=== PATIENT | female | born 1955 | race Caucasian/White ===

== ENCOUNTER 2020-02-13 18:55 | Inpatient (IN) | payer OTHER ==
--- OUTSIDE RECORDS SUMMARY | 2020-02-13 18:58 | XMS REPORT | Clinical Summary ---
:1955 Author Organization [facility] Address [address] [place] [address] Care Team Providers Name Role Phone Leonel Hernandes MD Primary Care Provider [phone] Allergies Active Allergy Reactions Severity Noted Date Comments Nsaids (Non-Steroidal 04/29/2018 Avoids because of remaining Anti-Inflammatory Drug) one kidney issues Sulfa (Sulfonamide Rash Low 05/24/2016 Antibiotics) Medications Medication Sig Dispensed Refills Start End Status Date Date amLODIPine (NORVASC) 5 Take 5 mg by 0 Active MG tablet mouth daily. Total dose is 7.5 mg daily omega-3 acid ethyl Take 2 g by 0 Active esters (LOVAZA) 1 gram mouth 2 (two) capsule times a day. cyanocobalamin 1000 MCG Take 1,000 mcg 0 Active tablet by mouth daily. omeprazole (PriLOSEC) Take 20 mg by 0 Active 20 MG capsule mouth daily. aspirin (ECOTRIN) 81 MG Take 81 mg by 0 Active enteric coated tablet mouth daily. amLODIPine (NORVASC) Take 2.5 mg by 1 08/10/19 Active 2.5 mg tablet mouth daily. 18 Total dose is 7.5 mg daily diclofenac (VOLTAREN) 1 APPLY TO 100 g 0 12/14/19 Active % gel AFFECTED AREA 4 18 TIMES A DAY gabapentin (NEURONTIN) Take 300 mg by 0 Active 300 mg capsule mouth nightly. hydroCHLOROthiazide Take 12.5 mg by 0 Active (HYDRODIURIL) 12.5 MG mouth daily. tablet cholecalciferol, Take 2,000 0 Ac tive vitamin D3, 50 mcg Units by mouth (2,000 unit) capsule daily. capsule atorvastatin (LIPITOR) Take 80 mg by 0 Active 80 MG tablet mouth daily. therapeutic Take 2 tablets 0 Act sole multivitamin by mouth daily. (THERAGRAN) tablet amoxicillin-pot 0 12/31/19 Acti ve clavulanate (AUGMENTIN) 20 500-125 mg per tablet multivit with 0 04/21/20 Active calcium,iron,min 10 (MULTIPLE VITAMIN, WOMENS ORAL) ezetimibe (Zetia) 10 mg Take 1 tablet 90 tablet 3 01/12/20 Active tabletIndications: (10 mg total) 20 021 hypertriglyceridemia by mouth daily .hypertriglycer idemia. atorvastatin (LIPITOR) Take 40 mg by 0 13/09 Discontinued 40 MG tablet mouth daily. 020 (Dos e adjustment ) therapeutic Take 1 tablet 0 Disc ontinued multivitamin by mouth daily. 020 ( Dose (THERAGRAN) tablet a djustment) cholecalciferol, Take 1,000 0 Di scontinued vitamin D3, (VITAMIN Units by mouth 020 (Dose D3) 1,000 unit tablet daily. adjustment) lisinopril-hydrochlorot Take 1 tablet 0 09/21/19 Discontinued hiazide by mouth daily. 18 020 (Alt ernate (PRINZIDE,ZESTORETIC) therapy) 10-12.5 mg per tablet gabapentin (NEURONTIN) Take 100 mg by 1 08/08/19 Discontinued 100 mg capsule mouth nightly. 18 020 (Dose adjustment ) tobramycin (TOBREX) 0.3 1 drop 4 (four) 0 04/03/20 Discontinued % drops times a day. 18 020 (Therap y Left eye completed) ondansetron (ZOFRAN) 4 Take 1 tablet 20 tablet 0 04/24/2013/09 Discontinued MG tabletIndications: (4 mg total) by 18 02 0 (Therapy Jing's deformity, mouth every 8 completed) right (eight) hours as needed for nausea or vomiting. sodium,potassium,mag Dispense 1 kit. 354 mL 0 08/04/1912/09 Discontinued sulfates (SUPREP BOWEL Take as 20 020 (Med List PREP KIT) 17.5-3.13-1.6 directed. Cleanup) gram recon soln Please follow the prep instructions provided by the office only. acetaminophen-codeine Take 2 tablets 15 tablet 0 01/29/2010/09 (TYLENOL WITH CODEINE by mouth every 20 020 #3) 300-30 mg per 4 (four) hours tabletIndications: as needed for acute pain moderate pain for up to 10 days .acute pain. methylPREDNISolone follow package 21 tablet 0 01/29/20 (MEDROL DOSEPAK) 4 mg directions 20 020 tablet Hospital, Clinic, or Other Ordered Dose Route Frequency Start Date End Date Status Facility Administered Medication triamcinolone acetonide 40 mg IM once 10/09/2018 Active (KENALOG-40) injection 40 mgIndications: Jing's deformity, right Ropivacaine hydrochloride 12 mg epid continuous 10/09/2018 Active Injection 0.2 % 20 mg/10 mLIndications: Jing's deformity, right triamcinolone acetonide 40 mg IM once 03/12/2019 Active (KENALOG-40) injection 40 mgIndications: Neuropathy of right saphenous nerve Ropivacaine hydrochloride 12 mg epid continuous 03/12/2019 Active Injection 0.2 % 20 mg/10 mLIndications: Neuropathy of right saphenous nerve triamcinolone acetonide 40 mg IM once 08/18/2019 Active (KENALOG-40) injection 40 mgIndications: Neuritis of right sural nerve Ropivacaine hydrochloride 12 mg inj once 08/18/2019 Active Injection 0.2 % 20 mg/10 mLIndications: Neuritis of right sural nerve triamcinolone acetonide 40 mg IM once 08/18/2019 Active (KENALOG-40) injection 40 mgIndications: Right tibial neuropathy Ropivacaine hydrochloride 12 mg inj once 08/18/2019 Active Injection 0.2 % 20 mg/10 mLIndications: Right tibial neuropathy Active Problems Problem Noted Date History of vertigo 01/12/2020 Bruises easily 01/12/2020 Personal history of gout 01/12/2020 Class 1 obesity due to excess calories with serious co morbidity and body 01/12/2020 mass index (BMI) of 32.0 to 32.9 in adult Recurrent UTI 01/12/2020 High triglycerides 01/12/2020 Chronic kidney disease (CKD), stage III (moderate) At risk for osteoporosis 01/12/2020 Elevated lipids 01/12/2020 Essential hypertension 01/12/2020 Personal history of gastric bypass 01/12/2020 Neuritis of right sural nerve 08/18/2019 Right tibial neuropathy 08/18/2019 Jing's deformity, 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 Encounters Date Type Specialty Care Team Description 01/29/2020 Office Visit Orthopedic Surgery John Kendrick Posterio r calcaneal exostosis, left (Primary Dx); MD Neil Achilles tendin itis of left lower extremity 01/29/2020 Orders Only Orthopedic Surgery Yesica Hernández MA 01/29/2020 Travel 01/28/2020 Travel 01/12/2020 Telemedicine Internal Medicine [place], Encounter for medical examination to establish care (Primary Dx); Tommy Castaneda, Neuropathy; Personal histor y of gastric bypass; Essential hyper tension; Elevated lipids ; Encounter for h epatitis C screening test for low risk patient; At risk for ost eoporosis; Chronic kidney disease (CKD), stage III (moderate) (HCC); High triglyceri denisse; Recurrent UTI; Class 1 obesity due to excess calories with serious comorbidity and body mass index (BMI) of 32.0 to 32.9 in adult; Personal histor y of gout; Bruises easily; History of vert igo 01/04/2020 Travel 08/18/2019 Clinical Support Orthopedic Surgery Seng Montano H aglund's deformity, right (Primary Dx); MD Serafin Neuritis of rig ht sural nerve; Right tibial ne uropathy 08/12/2019 Telephone Gastroenterology Saskia Stewart LVN 08/06/2019 Lab Lab Erlinda Alba MD 08/06/2019 Documentation Gastroenterology Erlinda Alba Colono scopy MD 08/04/2019 Orders Only Gastroenterology Mamie Baeza MA 08/04/2019 Telephone GastroenterErlinda Mar MD 07/24/2019 Telephone Gastroenterology Erlinda Alba MD 07/08/2019 Telephone GastroenterErlinda Mar MD 03/12/2019 Office Visit Orthopedic Surgery Seng Montano Neuro hipolito of right saphenous nerve (Primary Dx); MD Serafin Jing's defor mity, right after 02/12/2019 Family History Medical History Relation Name Comments Early Brother Malik. C. At 50 Heart disease Brother J. C. Heart attack at 28 Early Father Efraín At 60 -stroke at 53 Hearing loss Father Efraín Noise induced Hypertension Father Efraín Stroke Father Efraín At 53 disabling Diabetes Maternal Grandmother Chata Ellis Alcohol abuse Mother Reddy In 50,s. Stress Cancer Mother Reddy Non small cell l max cancer Early Mother Reddy At 60 Alcohol abuse Paternal Grandfather Braeden Habitual Relation Name Status Comments Brother Yelena Ll[place]. Father Efraín Maternal Grandmother Chata Ellis Mother Reddy Paternal Grandfather Braeden Social History Tobacco Use Types Packs/Day Years Used Date Never Smoker 0 0 Smokeless Tobacco: Never Used Alcohol Use Drinks/Week oz/Week Comments Yes 7 Glasses of wine 7.0 0 Cans of beer 0 Shots of liquor 0 Standard drinks or equivalent Sex Assigned at Date Recorded Female 01/05/2020 3:53 PM CDT Job Start Date Occupation Industry Not on file Not on file Not on file Travel History Travel Start Travel End No recent travel history available. COVID-19 Exposure Response Date Recorded In the last month, have you been in contact with No / Unsure 01/29/2020 8:49 AM CDT someone who was confirmed or suspected to have Coronavirus / COVID-19? Last Filed Vital Signs Vital Sign Reading Time Taken Comments Blood Pressure 135/88 01/12/2020 1:02 PM CDT Pulse 65 01/12/2020 1:02 PM CDT Temperature - - Respiratory Rate - - Oxygen Saturation - - Inhaled Oxygen Concentration - - Weight 74.8 kg (165 lb) 01/12/2020 1:02 PM CDT Height 152.4 cm (5') 01/12/2020 1:02 PM CDT Body Mass Index 32.22 01/12/2020 1:02 PM CDT Plan of Treatment Health Maintenance Due Date Last Done Comments CERVICAL CANCER SCREENING 1977 BREAST CANCER SCREENING 2006 COLONOSCOPY SCREENING 2006 SHINGLES VACCINES (#1) 2006 INFLUENZA VACCINE 02/20/2020 Procedures Procedure Name Priority Date/Time Associated Diagnosis Comme nts XR ANKLE 3+ VW LEFT Routine 01/29/2020 9:03 AM Chronic pain o f left Results for this CDT ankle procedure are i n the results section. URINALYSIS, Routine 01/28/2020 11:29 AM Recurrent UTI Results for this COMPLETE, WITH CDT procedure are in REFLEX TO CULTURE the result s section. SURGICAL PATHOLOGY Routine 08/06/2019 2:01 PM Re sults for this REQUEST PLASTIC SURGERY MANAGER procedure are i n the results section. after 02/12/2019 Results XR Ankle 3+ Vw Left (01/29/2020 9:03 AM CDT) Specimen Narrative Performed At This result has an attachment that is no t available. 3 views of her left ankle done weightbearing today shows overall HM [facility] well-preserved ankle joint space that is congruent. No acute fractures identified. There is a large os trigonum that is pre sent. Also notable is calcification along the Achilles at the insertion s ite with an exostosis and some calcification along the non-inserti onal region. Plantar exostosis also noted. Performing Organization Address City/State/Zipcode Phone Number [facility] [address] [place] [address] URINALYSIS, COMPLETE, WITH REFLEX TO CULTURE (01/28/2020 11:29 AM CDT) Color, UA YELLOW YELLOW [facility] [place] Appearance CLEAR CLEAR [facility] [place] Specific gravity, 1.020 1.001 - 1.035 [facility] [place] pH, urine < OR = 5.0 5.0 - 8.0 [facility] [place] Glucose, urine NEGATIVE NEGATIVE [facility] [place] Bilirubin, UA NEGATIVE NEGATIVE [facility] [place] Ketones, UA NEGATIVE NEGATIVE [facility] [place] Occult blood, NEGATIVE NEGATIVE [facility] urine [place] Protein, UA 2+ (A) NEGATIVE [facility] [place] Nitrite, UA NEGATIVE NEGATIVE [facility] [place] Leukocyte NEGATIVE NEGATIVE [facility] esterase, UA [place] WBC, UA NONE SEEN < OR = 5 /HPF [facility] [place] RBC, UA NONE SEEN < OR = 2 /HPF [facility] [place] Squamous NONE SEEN < OR = 5 /HPF [facility] epithelial cells, [place] UA Bacteria, UA NONE SEEN NONE SEEN /HPF [facility] [place] Hyaline casts, UA NONE SEEN NONE SEEN /LPF [facility] [place] Reflex NO CULTURE [facility] INDICATED [place] Specimen Narrative Performed At PATIENT REFUSED SOME TESTING; PATIENT ENCOURAGED TO RE TURN. [facility] Resulting Agency Comment Performing Organization Information: Site ID: [id number] Name: [facility] Address: [address] [place] [id number] Director: Emir Rice Performing Organization Address City/[facility]/Zipcode Phone Number [facility] [address] [address] Surgical pathology request (08/06/2019 2:01 PM PLASTIC SURGERY MANAGER) [facility] DEPARTMENT OF PATHOLOGY AND GENOMIC MEDICINE Surgical pathology See link below [facility] DEPARTMENT OF report for PDF Lab PATHOLOGY AND Report GENOMIC MEDICINE Result status This is Final [facility] DEPARTMENT OF Report for PATHOLOGY AND [id number] GENOMIC MEDICINE Specimen Performing Organization Address City/State/Zipcode Phone Number [facility] DEPARTMENT OF PATHOLOGY AND [address], [place] [address] GENOMIC MEDICINE after 02/12/2019 Advance Directives For more information, please contact: [phone] Type Date Recorded Patient Philatelic Consultant Explanati on Advance Directives, Living Will and Medical Power of Group Exercise Manager
--- OUTSIDE RECORDS SUMMARY | 2020-02-13 18:58 | XMS REPORT | Continuity of Care Document ---
:1955 Author Organization [facility] Care Team Providers Name Role Phone [facility] Unavailable Un available Problems Problem Status Onset Classification Date Comments Sourc e Date Reported R11.2 - Active OPID "NAUSEA WITH 7 Mac VOMITING, UNSPECIF" Medications No Data Provided for This Section Allergies, Adverse Reactions, Alerts No Known Medication Allergies Immunizations No Data Provided for This Section Results No Data Provided for This Section Pathology Reports No Data Provided for This Section Diagnostic Reports Report Value Date Source Gallbladder scan HIDA w EXAM: [place] Hepatobiliary Imaging with Pharm Intervention 04/09/2017 [facility] [place] [facility] [place] DATE: 04/09/2017 8:19 AM CDT INDICATION: NAUSEA, VOMITING COMPARISON: None. TECHNIQUE: After the intravenous admini stration of 6.51 mCi of technetium 99m Choletec, dynamic blood flow images followed by sequential static images through 60 minutes were obtained. Subsequently 1.5 mcg of CCK was administered intravenous ly over 3 minutes and additional images were obtained for another 30 minutes. Additionally, 8 oz of milk was administered followed by 15 minutes delayed images were obtained for another 30 minutes. FINDINGS: There is good tracer uptake in the liver with homogeneous distribution. The liver appears normal in size and shape. There is timely excretion of tracer into the extrahepatic biliary tree, bowel, and cirilo ibrahima visualization of the gal lbladder. There is good response of the gallbladder to CCK stimulation with a calculated gallbladder ejection fraction of 36% (normal is greater than 35%). Additionally, ther e is good response of the ga llbladder to milk stimulation with a calculated gallbladder ejection fraction of 48%. IMPRESSION: Normal hepatobiliary scan with normal gallbladde r contractility. Abdomen/Pelvis w/wo IV Enteric contrast was utilized. 04/08/[address] [facility] [address] EXAM: CT ABDOMEN AND PELVIS WITHOUT AND WITH C ONTRAST DATE: 04/08/2017 5:55 PM CDT INDICATION: - R11.2 Nausea with vomiting, uns pecified ADDITIONAL INFORMATION: None. COMPARISON: Upper gastrointestinal 12/16/2008 TECHNIQUE: Volumetric CT acq uisition of the abdomen and pelvis before and after the intravenous administration contrast. Axial, coronal and sagittal reconstructions. IV CONTRAST: 100 mL of Omnipaque 350 ORAL CONTRAST: None RADI[facility] DOSE: Total DLP: 1539 mGy*cm Estimated effective dose: DL P x 0.015 mSv COMPLICATIONS: None FINDINGS: Lines and tubes: None. Lower thorax: Mild right med ial lower lung zone atelectasis. No pleural effusions. Liver: Hepatic steatosis without focal lesions. Biliary tree: No intra- or extrahepatic biliary ductal dilation. Gallbladder: No radiopaque g allstones. No wall thickening or pericholecystic fluid. Pancreas: Atrophic pancreas with fatty infiltration at the pancreatic head. No ductal dilatation or obvious focal lesions. Spleen: No splenomegaly or focal lesions. Adrenals: Normal. Kidneys and ureters: Left ki dney is absent. Small bowel loops extend to the left renal fossa. No fluid collections or definite masses within the left renal fossa. Solitary right kidney enhanc es normally without perinephric stranding. No definite right renal stone or hydronephrosis. No right hydroureter. A 0.8 cm rim calcified right renal artery aneury sm. Bladder: No radiopaque bladder stones. Reproductive organs: Anteflexed uterus. No large adnexal lesions. Gastrointestinal tract: Post surgical changes related to Nohemy-en-Y gastric bypass. No significant dilatation of the gastric pouch and gastroduodenal anastomosis. Nondilated small bowel loops appears lateral to the descending colon secondary to gastric bypass surgery, some of which are collapsed. No dilatation of the excluded stomach and biliop ancreatic limb. The cecum. Some more central position. Partially visualized appendix appears within normal limits without fluid collections or stranding. Moderate colonic stool burden. Interposition of the traverse col on likely from surgery. No colonic obstruction. Moderate stool burden. Peritoneum and retroperitoneum: No ascites or fr ee air. Lymph nodes: No lymphadenopathy. Vasculature: Visualized abdo rosemary aorta and IVC within normal limits in caliber. Contrast bolus mixing within the IVC. A venous branch extends across the aorta to the left and extends inferiorly, most likely a left gonadal vein. Solitary right renal artery and vein are opacified. Right renal artery calcified aneurysm. Moderate arthrosclerotic monique cifications of the abdominal aorta and branches, including the tortuous splenic artery. The portal system is patent. The celiac trunk, SMA, and LEESA are patent. Bones: No acute osseous lesions. Soft tissues: Thinning of th e rectus abdominis muscle with sedation associated atrophy of the paraspinal and abdominal muscles. This IMPRESSION: 1. Postsurgical changes rel ated to Nohemy-en-Y gastric bypass with no evidence of obstruction. 2. Moderate colonic stool burden. 3. Left kidney absent, whic h could be congenital or prior nephrectomy. Please correlate with surgical history. 4. Solitary right kidney without renal stones o r hydronephrosis. 5. Calcified right renal artery aneurysm. Consultation Notes No Data Provided for This Section Discharge Summaries No Data Provided for This Section History and Physicals No Data Provided for This Section Vital Signs No Data Provided for This Section Encounters No Data Provided for This Section Procedures No Data Provided for This Section Assessment and Plan No Data Provided for This Section Plan of Care No Data Provided for This Section Social History No Data Provided for This Section Family History No Data Provided for This Section Advance Directives No Data Provided for This Section Functional Status No Data Provided for This Section
--- OUTSIDE RECORDS SUMMARY | 2020-02-13 18:58 | XMS REPORT | Clinical Summary ---
:1955 Author Organization [facility] Address [address] [place] [address] Care Team Providers Name Role Phone Michael Vaughn Primary Care Provider Unavailable Allergies Active Allergy Reactions Severity Noted Date Comments Nsaids (Non-Steroidal 07/03/2018 Kidney disease Anti-Inflammatory Drug) Penicillins Anaphylaxis High 07/03/2018 Sulfa (Sulfonamide Antibiotics) Rash Low 8 Medications Medication Sig Dispensed Refills Start Date End Date Status aspirin 81 MG EC tablet Take 81 mg by 0 Active mouth daily. atorvastatin (LIPITOR) Take 10 mg by 0 Active 10 MG tablet mouth daily. benazepril-hydrochlorth Take 1 tablet by 0 Active iazide (LOTENSIN HCT) mouth daily. 10-12.5 mg per tablet lisinopril Take 10 mg by 0 Activ e (PRINIVIL,ZESTRIL) 10 mouth daily. MG tablet pedi multivit Take by mouth. 0 A ctive no.33/fluoride (FHFW-TC-CXEM ORAL) tobramycin-dexamethason 1 drop every 4 0 Active e (TOBRADEX) 0.3-0.1 % (four) hours ophthalmic solution while awake. gabapentin (NEURONTIN) Take 300 mg by 0 Active 300 MG capsule mouth 3 (three) times daily. omega-3 fatty Take 2 g by mouth 0 Active acids-fish oil 2 (two) times 340-1,000 mg Cap per daily. capsule Active Problems Not on file Social History Tobacco Use Types Packs/Day Years Used Date Never Smoker Smokeless Tobacco: Never Used Alcohol Use Drinks/Week oz/Week Comments Yes 7 Glasses of wine 4.2 Sex Assigned at Date Recorded Not on file Job Start Date Occupation Industry Not on file Not on file Not on file Travel History Travel Start Travel End No recent travel history available. Last Filed Vital Signs Not on file Plan of Treatment Not on file Results Not on fileafter 02/12/2019 Insurance Payer Benefit Plan / Group Subscriber ID Type Phone A ddress [employer] - [employer] CARE [employer] HMO POS QPOS xxxxxxxxx HMO/POS (Home) [place] [address]
--- OUTSIDE RECORDS SUMMARY | 2020-02-13 18:59 | XMS REPORT | Continuity of Care Document ---
:1955 Author Organization [facility] t Address [address] [place] [address] Care Team Providers Name Role Phone Leonel Hernandes MD Primary Care Physician [phone] Pob1, Care Clinic Attending Clinician Unavailable Leonel Hernandes MD Attending Clinician Neil Kendrick MD Attending Clinician Edgar LANTIGUA Attending Clinician Unavailable Serafin Montano MD Attending Clinician Pat FLYNN Attending Clinician Unavailable Sarah Alba MD Attending Clinician Felisha LANTIGUA Attending Clinician Unavailable Payers Payer Name Policy Type Policy Number Effective Date Expiration Date S gael AETNAAETNA xxxxxxxxx 1990 [facility] HMO,POS,EPO, 00:00:00 Yarsanism MYNOR/[id number] O Problems Condition Condition Condition Status Onset Resolution Last Treating Co mments Source Name Details Category Date Date Treatment Clinician Date History of History of Disease Active [place] vertigo vertigo 01-11 [facility] 00:00: st 00 Bruises Bruises Disease Active [facility] easily easily 01-11 Methodi 00:00: st 00 Personal Personal Disease Active [place] history of history of 01-11 Me thodi gout gout 00:00: st 00 Class 1 Class 1 Disease Active [place] obesity obesity 01-11 [facility] due to due to 00:00: st excess excess 00 calories calories with with serious serious comorbidit comorbidit y and body y and body mass index mass index (BMI) of (BMI) of 32.0 to 32.0 to 32.9 in 32.9 in adult adult Recurrent Recurrent Disease Active Bernarda ston UTI UTI 01-11 Methodi 00:00: st 00 High High Disease Active [place] triglyceri triglyceri 01-11 Me thodi denisse denisse 00:00: st 00 Chronic Chronic Disease Active [place] kidney kidney 01-11 [facility] disease disease 00:00: st (CKD), (CKD), 00 stage III stage III (moderate) (moderate) At risk At risk Disease Active [place] for for 01-11 [facility] osteoporos osteoporos 00:00: st is is 00 Elevated Elevated Disease Active [place] lipids lipids 01-11 Methodi 00:00: st 00 Essential Essential Disease Active Bernarda stallingsrahul hypertensi hypertensi 01-11 Me thodi on on 00:00: st Personal Personal Disease Active [place] history of history of 01-11 Me thodi gastric gastric 00:00: st bypass bypass 00 Neuritis Neuritis Disease Active [place] of right of right 08-18 Method i sural sural 00:00: st nerve nerve 00 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 08-18 [facility] neuropathy neuropathy 00:00: st 00 Jing's Jing's Disease Active Bernarda stallingsrahul deformity, deformity, 2-08 Me th[facility] right right 00:00: st 00 R11.2 - Diagnosis Active 2017-04-26 Me moria "NAUSEA 04-04 13:45:00 l WITH R11.2 - 00:01: Mac VOMITING, "NAUSEA 00 UNSPECIF" WITH VOMITING, UNSPECIF" Active 04/04/2017 NICOLASA Watts Allergies, Adverse Reactions, Alerts Allergy Allergy Status Severity Reaction(s) Onset Inactive Treating Comm ents Source Name Type Date Date Clinician Nsaids Propensi Active 2017-[address] [facility] (Non-Rahul ty to 2-13 disease [facility] adverse 00:00: Medical Anti-Inf reaction 00 Center lammator s y Drug) Penicill Propensi Active Anaphylaxis 2017-[address] ins ty to 2-13 [facility] - adverse 00:00: Medical reaction 00 Center s Sulfa Propensi Active Rash 2017-07 [facility] (Sulfona ty to 2-13 [facility] - mide adverse 00:00: Medical Antibiot reaction 00 Center ics) s Nsaids Propensi Active 2017-07 Avoids [facility] (Non-Rahul ty to 0-09 because Methodi roidal adverse 00:00: of st Anti-Inf reaction 00 remaining lammator s to one y Drug) drug kidney issues Sulfa Propensi Active Rash 2015-07 [facility] (Sulfona ty to 1-03 Methodi mide adverse 00:00: st Antibiot reaction 00 ics) s to drug Family History Family Member Diagnosis Comments Start Date Stop Date Source Natural brother Early [place] Yarsanism Natural brother Heart disease [place] Yars[place] Natural father Early [facility] M ethodist Natural father Hearing loss [facility] Yarsanism Natural father Hypertension [facility] Yarsanism Natural father Stroke [facility] Me thodist Maternal grandmother Diabetes [place] Yarsanism Natural mother Alcohol abuse [facility] Yarsanism Natural mother Cancer [facility] th[facility]ist Natural mother Early [facility] M ethodist Paternal grandfather Alcohol abuse [place] Yarsanism Social History Social Habit Start Date Stop Date Quantity Comments Source Exposure to Not sure [facility] Metho dist SARS-CoV-2 (event) Sex Assigned At [facility] Alcohol intake 2020-01-12 2020-01-12 Current drinker [place] Yarsanism 00:00:00 00:00:00 of alcohol (finding) Smoking Status Start Date Stop Date Source Never smoker [facility] edical [place] Medications Ordered Filled Start Stop Current Ordering Indication Dosage Frequency Signature Comments Components Source Medication Medication Date Date Medication? Clinician (SIG) Name Name acetaminoph 2020- No acute pain 2{tbl} Q4H Take 2 [facility] en-codeine 01-28 07-20 tablets by Me richardson (TYLENOL 00:00: 23:[address] WITH 00 :00 every 4 CODEINE #3) (four) 300-30 mg hours as per tablet needed for moderate pain for up to 10 days .acute pain. methylPREDN 2019- No follow Bernarda jones ISolone 01-28 07-16 package Methodi (MEDROL 00:00: 23:[address] DOSEPAK) 4 00 :00 mg tablet amLODIPine 2020-0 Yes 5mg QD Take 5 mg [place] (NORVASC) 5 6-23 by mouth Meth elio MG tablet 13:03: daily. st 35 Total dose is 7.5 mg daily omega-3 2020-0 Yes 2g Q.5D Take 2 g [place] acid ethyl 6-23 by mouth 2 Met hodi esters 13:03: (two) st (LOVAZA) 1 35 times a gram day. capsule cyanocobala 2020-0 Yes 1000ug QD Take 1,000 [place] min 1000 6-23 mcg by Methodi MCG tablet 13:03: mouth st 35 daily. omeprazole 2020-0 Yes 20mg QD Take 20 mg [place] (PriLOSEC) 6-23 by mouth Metho di 20 MG 13:03: daily. st capsule 35 aspirin 2020-0 Yes 81mg QD Take 81 mg [place] (ECOTRIN) 6-23 by mouth Method i 81 MG 13:03: daily. st enteric 35 coated tablet gabapentin 2020-0 Yes 300mg QD Take 300 [place] (NEURONTIN) 6-23 mg by Methodi 300 mg 13:03: mouth st capsule 35 nightly. hydroCHLORO 2020-0 Yes 12.5mg QD Take 12.5 [place] thiazide 6-23 mg by Methodi (HYDRODIURI 13:03: mouth st L) 12.5 MG 35 daily. tablet cholecalcif 2020-0 Yes 2000U QD Take 2,000 [place] tracy, 6-23 Units by Methodi vitamin D3, 13:03: mouth st 50 mcg 35 daily. (2,000 unit) capsule capsule atorvastati 2020-0 Yes 80mg QD Take 80 mg [place] n (LIPITOR) 6-23 by mouth Meth elio 80 MG 13:03: daily. st tablet 35 therapeutic 2020-0 Yes 2{tbl} QD Take 2 [place] multivitami 6-23 tablets by La thodi n 13:03: mouth st (THERAGRAN) 35 daily. tablet therapeutic 2020-0 2020- No 1{tbl} QD Take 1 [place] multivitami 6-23 06-23 tablet by [place] thodi n 10:23: 00:[address] (THERAGRAN) 24 :00 daily. tablet atorvastati 2020-0 2020- No 40mg QD Take 40 mg [place] n (LIPITOR) 01-11 by mouth Met hodi 40 MG 10:23: 00:[address] tablet 02 :00 cholecalcif 2019- No 1000U QD Take 1,000 [place] tracy, 01-11 Units by Methodi vitamin D3, 10:22: 00:[address] (VITAMIN 45 :00 daily. D3) 1,000 unit tablet ezetimibe 2020- Yes 10mg QD Take 1 [place] (Zetia) 10 01-11 tablet (10 Me thodi mg tablet 00:00: 23:59 mg total) st 00 :00 by mouth daily .hypertrig lyceridemi a. amoxicillin 2019- Yes [place] -pot 12-30 [facility] clavulanate 00:00: st (AUGMENTIN) 00 500-125 mg per tablet triamcinolo 2019-0 Yes Neuritis of 40mg [place] ne 08-18 right sural Methodi acetonide 14:15: nerve st (KENALOG-40 00 ) injection 40 mg Ropivacaine 2019-0 Yes Neuritis of 12mg [place] hydrochlori 28 right sural M ethodi de 14:15: nerve st Injection 00 0.2 % 20 mg/10 mL triamcinolo 2019-0 Yes Right 40mg [place] ne 08-18 tibial Methodi acetonide 14:15: neuropathy st (KENALOG-40 00 ) injection 40 mg Ropivacaine 2019-0 Yes Right 12mg [place] hydrochlori 08-18 tibial Method i de 14:15: neuropathy st Injection 00 0.2 % 20 mg/10 mL sodium,pota 2019- No Dispense 1 [place] ssium,mag -14 08-12 kit. Take Meth elio sulfates 00:00: 00:[address] (SUPREP 00 :00 directed. BOWEL PREP Please KIT) follow the 17.5-3.13-1 prep .6 gram instructio recon soln ns provided by the office only. triamcinolo Yes Neuropathy 40mg [place] ne 8 of right Methodi acetonide 10:45: saphenous st (KENALOG-40 00 nerve ) injection 40 mg Ropivacaine Yes Neuropathy 12mg [place] hydrochlori 8-22 of right Meth elio de 10:45: saphenous st Injection 00 nerve 0.2 % 20 mg/10 mL triamcinolo Yes Jing's 40mg [place] ne 3-21 deformity, Methodi acetonide 09:45: right st (KENALOG-40 00 ) injection 40 mg Ropivacaine Yes Jing's 12mg [place] hydrochlori 3-21 deformity, Me thodi de 09:45: right st Injection 00 0.2 % 20 mg/10 mL omega-3 2017-07 Yes 2g Q.5D Take [address] [facility] fatty 2-14 by mouth 2 [facility] - acids-fish 10:51: (two) Medica l oil 46 times Center 340-1,000 daily. mg Cap per capsule gabapentin 2017-07 Yes 300mg [id number] Take [address] (NEURONTIN) 2-13 [id number] mg by L ukes - 300 MG 10:42: 3D mouth 3 Medical capsule 05 (three) Center times daily. lisinopril 2017-07 Yes 10mg QD Take [address] (PRINIVIL,Z 2-13 by mouth Luke s - ESTRIL) 10 09:27: daily. Medic al MG tablet 41 Center pedi 2017-07 Yes Take by [facility] multivit 2-13 mouth. [facility] - no.33/fluor 09:27: Medica l goldie 41 Center (POLY--FL OR ORAL) tobramycin- 2017-07 Yes 1[drp] [address] dexamethaso 2-13 every 4 [facility] - ne 09:27: (four) Medical (TOBRADEX) 41 hours Center 0.3-0.1 % while ophthalmic awake. solution aspirin 81 2017-07 Yes 81mg QD Take [address] MG EC 2-13 by mouth [facility] - tablet 09:27: daily. Medical 40 Center atorvastati 2017-07 Yes 10mg QD Take [address] n (LIPITOR) 2-13 by mouth Luke s - 10 MG 09:27: daily. Medical tablet 40 Center benazepril- 2017-07 Yes 1{tbl} QD Take [address] hydrochlort 2-13 tablet by Eber es - hiazide 09:27: mouth Medical (LOTENSIN 40 daily. Center HCT) 10-12.5 mg per tablet ondansetron 2018-1 2020- No Jing's 4mg Q8H Take 1 [place] (ZOFRAN) 4 0-04 01-11 deformity, tablet (4 Methodi MG tablet 00:00: 00:00 right mg total) s t 00 :00 by mouth every 8 (eight) hours as needed for nausea or vomiting. tobramycin 2019- No 1[drp] Q.25D 1 drop 4 [place] (TOBREX) 04-03 (four) Methodi 0.3 % drops 00:00: 00:[address] 00 :00 day. Left eye diclofenac Yes APPLY TO Bernarda haylien (VOLTAREN) 5-25 AFFECTED Metho di 1 % gel 00:00: AREA 4 st 00 TIMES A DAY lisinopril- 2019- No 1{tbl} QD Take 1 [place] hydrochloro 301-11 tablet by Me richardson thiazide 00:00: 00:[address] (PRINZIDE,Z 00 :00 daily. ESTORETIC) 10-12.5 mg per tablet amLODIPine Yes 2.5mg QD Take 2.5 [place] (NORVASC) 1-20 mg by Methodi 2.5 mg 00:00: mouth st tablet 00 daily. Total dose is 7.5 mg daily gabapentin 2019- No 100mg QD [facility] 1-18 - mg by Method i 100 mg 00:00: 00:[address] capsule 00 :00 nightly. multivit 2009-07 Yes [place] with 0-01 Methodi calcium,iro 00:00: st n,min 00 (MULTIPLE VITAMIN, WOMENS ORAL) Vital Signs Vital Name Observation Time Observation Value Comments Source Systolic blood 2020-01-12 13:02:00 135 mm[Hg] [place] n Yarsanism pressure Diastolic blood 2020-01-12 13:02:00 88 mm[Hg] [place] on Yarsanism pressure Heart rate 2020-01-12 13:02:00 65 /min Bashir Barrientos Body height 2020-01-12 13:02:00 152.4 cm Bashir Barrientos Body weight 2020-01-12 13:02:00 74.844 kg Bashir Barrientos BMI 2020-01-12 13:02:00 32.22 kg/m2 Bashir Barrientos Procedures Procedure Date / Time Performed Performing Clinician Sourc e XR ANKLE 3+ VW LEFT 2020-01-29 09:03:22 John Kendrick URINALYSIS, COMPLETE, 2020-01-28 11:29:00 Janet Hernandes Yarsanism WITH REFLEX TO CULTURE Leonel SURGICAL PATHOLOGY 2019-08-06 14:01:00 Erlinda Alba Bashir Nelson ethodist REQUEST Plan of Care Planned Activity Planned Date Details Comments Source Future Scheduled 2020-02-20 INFLUENZA VACCINE [place] [facility] Test 00:00:00 [code = INFLUENZA VACCINE] Future Scheduled 2006 BREAST CANCER [facility] thodist Test 00:00:00 SCREENING [code = BREAST CANCER SCREENING] Future Scheduled 2006 COLONOSCOPY SCREENING [facility] [place] Yarsanism Test 00:00:00 [code = COLONOSCOPY SCREENING] Future Scheduled 2006 SHINGLES VACCINES [place] Y[facility]ism Test 00:00:00 (#1) [code = SHINGLES VACCINES (#1)] Future Scheduled 1977 Screening for [facility] thodist Test 00:00:00 malignant neoplasm of cervix (procedure) [code = 750702576] Encounters Start End Encounter Admission Attending Care Care Encounter Source Date/Time Date/Time Type Type Clinicians Facility Department ID 2020-02-13 2020-02-13 Urgent Pob1, Acute [facility] [id number] 13:35:43 13:55:43 [facility] [id number] [place] [id number] Professio [id number] nal [address] 2020-01-29 2020-01-29 [id number] [facility] 00:00:00 00:00:00 JOHN [address] 2020-01-29 2020-01-29 Outpatient [facility] [id number] [place] 00:00:00 00:00:00 JOHN [address] 2020-01-12 2020-01-12 [facility] [id number] [facility] 00:00:00 00:00:00 JANET [address] Results Test Description Test Time Test Comments Results Result Comments Source URINALYSIS, COMPLETE, WITH REFLEX TO CULTURE 2020-01-29 07:4 3:00 Test Item Value Reference Range Interpretation Comme nts Color, UA (test code = 5778-6) YELLOW YELLOW Appearance (test code = 5767-9) CLEAR CLEAR Specific gravity, urine (test code 1.020 1.001-1.035 = 5811-5) pH, urine (test code = 5803-2) < OR = 5.0 5.0-8.0 Glucose, urine (test code = NEGATIVE NEGATIVE 76321-0) Bilirubin, UA (test code = 5770-3) NEGATIVE NEGATIVE Ketones, UA (test code = 2514-8) NEGATIVE NEGATIVE Occult blood, urine (test code = NEGATIVE NEGATIVE 5794-3) Protein, UA (test code = 44070-9) 2+ NEGATIVE A Nitrite, UA (test code = 5802-4) NEGATIVE NEGATIVE Leukocyte esterase, UA (test code NEGATIVE NEGATIVE = 5799-2) WBC, UA (test code = 5821-4) NONE SEEN < OR = 5 /HPF RBC, UA (test code = 10879-8) NONE SEEN < OR = 2 /HPF Squamous epithelial cells, UA NONE SEEN < OR = 5 /HPF (test code = 41136-7) Bacteria, UA (test code = 5769-5) NONE SEEN NONE SEEN /HPF Hyaline casts, UA (test code = NONE SEEN NONE SEEN /LPF 5796-8) Reflex (test code = 630-4) NO CULTURE INDICATED CORRINE (test code = CORRINE) PATIENT REFUSED SOME TESTING; PATIENT ENCOURAGED TO RETURN. RAC (test code = RAC) Performing Organization Information: [facility] ID: [facility] Address: [address] [place] [id number] Director: Emir Rice Lab Interpretation (test code = Abnormal 86125-1) [facility] [id number] 13:21:10 Test Item Value Reference Range Interpretation Comments Case number (test code = [id number]) Surgical pathology See link below for report (test code = PDF Lab Report 3060) Result status (test code This is Final Report = [id number]) for [id number] [facility]
--- OUTSIDE RECORDS SUMMARY | 2020-02-13 18:59 | XMS REPORT | Summary of Care ---
:1955 Author Organization [facility] - [facility] Address [address] [place] [id number] Care Team Providers Name Role Phone Pcp, Does Not Have A Primary Care Provider Reason for Visit Reason Comments Fever Shortness of Breath Encounter Details Date Type Department Care Team Description 02/13/2020 Urgent Care [facility] Alyson Mcclure, DELON [address] [address] Pyelonephritis (Primary Dx); Medicine - [place] [id number], Acute Care Clinic Dysuria; [address] [place] [address] Suspected Covid-[address] [place] [address] Allergies Active Allergy Reactions Severity Noted Date Comments Nsaids (Non-Steroidal Other - See comments 04/29/2018 Kidney disease Anti-Inflammatory Avoids bec ause of Drug) remaining one k idney issues Sulfa (Sulfonamide Rash Low 05/24/2016 Antibiotics) documented as of this encounter (statuses as of 02/13/2020) Medications Medication Sig Dispensed Refills Start Date End Date Status ezetimibe 10 mg tablet TAKE 1 TABLET 0 01/12/2020 Active (10 MG TOTAL) BY MOUTH DAILY .HYPERTRIGLYC ERIDEMIA. hydroCHLOROthiazide 12.5 12.5 mg. 0 12/31/2019 Active mg tablet amLODIPine 5 mg tablet Take 7.5 mg 0 12/25/2019 Active by mouth daily. fish oil-omega-3 fatty Take 2 g by 0 Active acids 340-1,000 mg capsule mouth. omeprazole 20 mg capsule Take 20 mg by 0 Active mouth. aspirin 81 mg EC tablet Take 81 mg by 0 Active mouth. gabapentin 300 mg capsule Take 300 mg 0 Active by mouth. Cholecalciferol, Vitamin Take 2,000 0 Active D3, 50 mcg (2,000 unit) Units by capsule mouth. vitamin B-12 1,000 mcg Take 1,000 0 Active tablet mcg by mouth. cycloSPORINE (RESTASIS) Place 1 Drop 0 07/29/2019 Active 0.05 % drops in each eye. multivitamin tablet Take 2 0 Active tablets by mouth. ciprofloxacin HCl 500 mg Take 1 tablet 10 tablet 0 02/13/2020 02/18/2020 Active tabletIndications: by mouth Pyelonephritis every 12 (twelve) hours for 5 days. documented as of this encounter (statuses as of 02/13/2020) Active Problems No known active problemsdocumented as of this encounter (statuses as of 02/13/2020) Social History Tobacco Use Types Packs/Day Years Used Date Never Smoker Smokeless Tobacco: Never Used Sex Assigned at Date Recorded Not on file Job Start Date Occupation Industry Not on file Not on file Not on file Travel History Travel Start Travel End No recent travel history available. COVID-19 Exposure Response Date Recorded In the last month, have you been in contact with No / Unsure 02/13/2020 1:40 PM CDT someone who was confirmed or suspected to have Coronavirus / COVID-19? documented as of this encounter Last Filed Vital Signs Vital Sign Reading Time Taken Comments Blood Pressure 129/78 02/13/2020 1:41 PM CDT Pulse 89 02/13/2020 1:41 PM CDT Temperature 37.8 C (100.1 F) 02/13/2020 1:41 PM CDT Respiratory Rate 20 02/13/2020 1:41 PM CDT Oxygen Saturation 97% 02/13/2020 1:41 PM CDT Inhaled Oxygen Concentration - - Weight 77.1 kg (170 lb) 02/13/2020 1:41 PM CDT Height 152.4 cm (5') 02/13/2020 1:41 PM CDT Body Mass Index 33.2 02/13/2020 1:41 PM CDT documented in this encounter Patient Instructions Patient InstructionsEdyta Obrien FNP - 02/13/2020 1:40 PM CDT1. Pyelonephritis 2. Dysuria - ciprofloxacin HCl 500 mg tablet; Take 1 tablet by mouth every 12 (twelve) hours for 5 days. Dispense: 10 tablet; Refill: 0 - POCT URINALYSIS W SPECIFIC GRAVITY - shows evidence of urinary infection. - URINALYSIS MICROSCOPIC - URINE CULTURE - Follow up with PCP, urgent care or ER in 2-3 days or sooner if symptoms do now improve or worsens.Patient/parent verbalized understanding and agreed with plan of care. - Education provided to patient includes: - Increase water intake. - Tylenol as directed - Wipe front to back for females. - Frequent voiding. - Avoid sexual activity until UTI resolves. - Follow up in the ER for worsening condition; nausea, vomiting, dizziness, passing out, fever, chills. 3. Suspected Covid-19 Virus Infection - COVID-19 (PCR MOLECULAR TESTING); Future - COVID-19 (PCR MOLECULAR TESTING) - Quarantine until your COVID results are back Criteria met - Covid testing - pending. This test can take 2-3 days to be resulted. While the test is pending...Please socially isolate your self - do not go out to stores or out in public. We will contact you once we have the results. If you are negative - continue with symptomatic treatment. (see below) Patients who have positive results will be contacted by the health department to enforce quarantine measures and for additional community contact tracing. The Infection Control Department will also undertake evaluation of exposures in our healthcare facility. If symptoms worsen - please call your Primary Care Doctor - do not go into the clinic. Call first. Educated on the following at home care: - Discussed likely viral diagnosis and treatment plan with pt. - pt advised on frequent effective handwashing - pt advised to increase fluid intake , stay hydrated and get plenty of rest. - advised to have the pt take OTC to treat symptoms. - Pt advised to administer Tylenol as per label recommendation as needed for pain or fever - Cover mouth when coughing, wear mask - Stay in your own bedroom and use a separate bathroom - Keep at least 6 feet from you and others - Avoid sharing personal household items, dishes, glasses, cups, towels -Clean high traffic/touch areas daily. These include but not limited to: doorknobs, refrigerator/cabinet handles, phones, keyboards, tablets, light switches. - AVS and Written/handout materials appropriate to problem and teaching provided. - advised to go to the nearest Emergency Department sooner for any new, worsening, persistent, or concerning symptoms - Patient verbalized understanding of all instructions - Follow-up with PCP as needed, if no improvement EDUCATION: Handouts given: Patient educated on plan of care for visit, swabbing technique,risks and benefits of test and lengthof time to receive results. Verbal consent obtained to perform test. CDC Fact Sheet for patients nCoV Diagnostic Panel dated 10/04/2019 provided. "What to do if you are sick with COVID-19" [facility] information guide reviewed with the patient and handout given to patient Education given to self quarantine until results are back. Will notify patient with results. Patient states understanding and all questions answered. Plan of care, goals and medications discussed with patient. Patient voices understanding. Barriers to care: none Ability to manage care: good FOLLOW UP: Pt advised to call 911 or go to the nearest Emergency Department sooner for any worsening, persistent, or concerning symptoms ER precautions given Patient Education Kidney Infection (Adult Female) An infection in one or both kidneys is called pyelonephritis. It usually happens when bacteria ) getinto the kidney. Rarely it is caused when other germs such as viruses, fungi, or other disease-causing organisms get into the kidney. The bacteria or other disease-causing organisms can enter the kidneys from the bladder or blood traveling from other parts of the body. A kidney infection can become serious. It can cause severe illness, scarring of the kidneys, or kidney failure if not treated correctly. Common causes for this problem include: Not keeping the genital area clean and dry, which promotes the growth of bacteria Wiping back to front. This drags bacteria from the rectum toward the urinary opening (urethra). Wearing tight pants or underwear. This lets moisture build up in the genital area, which helps bacteria grow. Holding urine in for long periods of time Dehydration Urinary tract infections Blockages of urine draining from the kidney, such as a kidney stone Kidney infections can cause symptoms similar to a bladder infection. Symptoms include: Pain (or burning) when urinating Having to urinate more often than usual Blood in the urine (pink or red) Belly (abdominal) pain or discomfort, usually in the lower abdomen Pain in the side or back Pain above the pubic bone Fever or chills Vomiting Loss of appetite Treatment is oral antibiotics. More severe cases are treated with intramuscular or IV (intravenous) antibiotics. These are started right away and may be changed once urine culture results show the infecting organisms. Treatment helps prevent a more serious kidney infection. Symptoms of kidney infections can vary based on your age. Medicines Medicines can help in the treatment of a bladder infection: Take antibiotics exactly as prescribed and until they are used up, even if you feel better. It's important to finish them to make sure the infection is gone. Unless another medicine was prescribed, you can use [id number] medicines for pain, fever, or discomfort. If you have chronic liver of kidney disease, talk with your healthcare provider before using these medicines. Also talk with your provider if you've ever had a stomach ulcer or digestive bl eeding, or are taking blood thinners. Home care The following are general care guidelines: Stay home from work or school. Rest in bed until your fever breaks and you are feeling better, oras advised by your healthcare provider. Drink lots of fluid unless you must restrict fluids for other medical reasons. This will force the medicine into your urinary system and flush the bacteria out of your body. Ask your healthcare provider how much you should drink. Don't have sex until you have finished all of your medicine and your symptoms are gone. Don't havecaffeine, alcohol, or spicy foods. These foods may irritate the kidneys and bladder. Don't take bubble baths. Sensitivity to the chemicals in bubble baths can irritate the urethra. Make sure you wipe from front to back after using the toilet. Wear loose cloths and cotton underwear. Prevention These self-care steps can help prevent future infections: Drink plenty of fluids to prevent dehydration and flush out the bladder. Do this unless you must restrict fluids for other health reasons, or your healthcare provider told you not to. Correct cleaning after going to the bathroom in important. Make sure you wipe from front to back after using the toilet. Urinate more often. Don't try to hold urine in for a long time. Don't wear tight-fitting pants and underwear. Improve your diet to prevent constipation. Eat more fruits, vegetables, and fiber. Eat less junk and fatty foods. Constipation can make a urinary tract infection more likely. Talk with your healthcare provider if you have trouble with bowel movements. Urinate right after sex to flush out the bladder. Follow-up care Follow up with your healthcare provider, or as advised. Additional testing may be needed to make sure the infection has cleared. Close follow-up and further testing is very important to find the cause and to prevent future infections. If a urine culture was done, you will be contacted if your treatment needs to be changed. If directed, you may call to find out the results. If you had an X-ray, CT scan, or other diagnostic test, you will be notified of any new findings that may affect your care. Call 911 Call 911 if any of the following occur: Trouble breathing Fainting or loss of consciousness Rapid or very slow heart rate Weakness, dizziness, or fainting Trouble arousing or confusion When to seek medical advice Call your healthcare provider right away if any of these occur: Fever 100.4F (38C) or higher, or as directed by your healthcare provider Not feeling better or symptoms get worse within 1 to 2 days after starting antibiotics Any symptom that continues after 3 days of treatment Increasing pain in the stomach, back, side, or groin area Repeated vomiting Not able to take prescribed medicine due to nausea or another reason Bloody, dark-colored, or foul smelling urine Trouble urinating or decreased urine output No urine for 8 hours, no tears when crying, confusion, sunken eyes, or dry mouth [employer] last reviewed this educational content on 05/22/201919999888-2430 [employer] [place] [address]. All rights reserved. This information is not intended as a substitute for professional medical care. Always follow your healthcare professional's instructions. documented in this encounter Progress Notes Chio Gaxiola LVN - 02/13/2020 1:40 PM CDTCarol Valentino is a 64 year old female here for fever and shortness of breath with exertion. Allergies and medications reviewed and updated. Edyta Dalal FNP - 02/13/2020 1:40 PM CDT Cc: Chief Complaint Patient presents with Fever Shortness of Breath Carol Valentino is a 64 year old female presents with concern for fever and sob. She started yesterday with dysuria and urgency. Fever, TMAX 102 and left flank pain. She's increased fluids with some improvement in symptoms. Denies any nausea or vomiting. Nephrectomy for non functioning kidney many years ago. She has stage 3 CKD. Her last infection was in December 30 and she follows with Urology. Eating/drinking okay. Denies any sick contacts. URINARY TRACT INFECTION Patient presents to clinic today with complaints of dysuria, flank pain, frequency and urgency. Patient denies bladder incontinence, hematuria, hesitancy, inability to urinate, nocturia, stress incontinence or urge incontinence. This is a new problem. The current episode started yesterday. The problemis unchanged. Her pain is at a severity of 1/10. The pain is mild. Patient describes pain as burning. The maximum temperature recorded prior to her arrival was 102 - 102.9 F. Fever has been present for less than 1 day. She describes her urine color as tea colored. Obstructive symptoms do not include dribbling, incomplete emptying, an intermittent stream, a slower stream, straining or a weak stream.Associated symptoms include chills, fever and flank pain. Pertinent negatives include no abdominal pain, discharge, facial swelling, nausea, possible , sweats or vomiting. She has tried increased fluids for the symptoms.The treatment provided mild relief. Her sexual activity is non-contributory to the current illness. Her past medical history is significant for hypertension, recent infection, recurrent UTIs and single kidney. Allergies Carol has no allergies on file. Medications No outpatient medications prior to visit. No facility-administered medications prior to visit. Histories Past Medical History: Diagnosis Date Chronic kidney disease Hyperlipidemia Hypertension Neuropathy Past Surgical History: Procedure Laterality Date HERNIA REPAIR LAPAROSCOPIC BARIATRIC GASTRIC BYPASS NEPHRECTOMY Social History Socioeconomic History Marital status: Spouse name: Not on file Number of children: Not on file Years of education: Not on file Highest education level: Not on file Occupational History Not on file Social Needs Financial resource strain: Not on file Food insecurity: Worry: Not on file Inability: Not on file Transportation needs: Medical: Not on file Non-medical: Not on file Tobacco Use Smoking status: Never Smoker Smokeless tobacco: Never Used Substance and Sexual Activity Alcohol use: Not on file Drug use: Not on file Sexual activity: Not on file Lifestyle Physical activity: Days per week: Not on file Minutes per session: Not on file Stress: Not on file Relationships Social connections: Talks on phone: Not on file Gets together: Not on file Attends anabaptist service: Not on file Active member of club or organization: Not on file Attends meetings of clubs or organizations: Not on file Relationship status: Not on file Intimate partner violence: Fear of current or ex partner: Not on file Emotionally abused: Not on file Physically abused: Not on file Forced sexual activity: Not on file Other Topics Concern Not on file Social History Narrative Not on file History reviewed. No pertinent family history. Review of Systems Constitutional: Positive for chills and fever. HENT: Negative for facial swelling and sore throat. Respiratory: Positive for cough and shortness of breath. Negative for wheezing and stridor. Gastrointestinal: Negative for abdominal pain, diarrhea, nausea and vomiting. Genitourinary: Positive for dysuria, urgency, frequency and flank pain. Negative for bladder incontinence, hematuria, decreased urine volume, difficulty urinating, pelvic pain and incomplete emptying. Musculoskeletal: Negative for myalgias. Skin: Negative for rash. Neurological: Negative for dizziness, weakness and headaches. All other systems reviewed and are negative. Vital Signs BP 129/78 | Pulse 89 | Temp 37.8 C (100.1 F) (Oral) | Resp 20 | Ht 5' (1.524 m) | Wt 170 lb(77.1 kg) | SpO2 97% | BMI 33.20 kg/m Physical Exam Constitutional: She is oriented to person, place, and time. She appears well- developed and well-nourished. HENT: Head: Normocephalic and atraumatic. Right Ear: Tympanic membrane, external ear and ear canal normal. Left Ear: Tympanic membrane, external ear and ear canal normal. Nose: Nose normal. Mouth/Throat: Uvula is midline, oropharynx is clear and moist and mucous membranes are normal. Tonsils are 1+ on the right. Tonsils are 1+ on the left. Eyes: Conjunctivae are normal. Neck: Normal range of motion. Neck supple. Cardiovascular: Normal rate, regular rhythm and normal heart sounds. Exam reveals no gallop and no friction rub. No murmur heard. Pulmonary/Chest: Effort normal and breath sounds normal. No accessory muscle usage or stridor. No tachypnea. No respiratory distress. She has no decreased breath sounds. She has no wheezes. She has no rhonchi. She has no rales. Abdominal: Bowel sounds are normal. There is no tenderness. There is no rigidity, no rebound, no guarding and no CVA tenderness. Musculoskeletal: Normal range of motion. Neurological: She is alert and oriented to person, place, and time. Skin: Skin is warm and dry. Psychiatric: She has a normal mood and affect. Her behavior is normal. Nursing note and vitals reviewed. Assessment/Plan Carol Valentino is a 64 year old female presents with concern for fever and sob. 1. Pyelonephritis 2. Dysuria - ciprofloxacin HCl 500 mg tablet; Take 1 tablet by mouth every 12 (twelve) hours for 5 days. Dispense: 10 tablet; Refill: 0 - POCT URINALYSIS W SPECIFIC GRAVITY - shows evidence of urinary infection. - URINALYSIS MICROSCOPIC - URINE CULTURE - Follow up with PCP, urgent care or ER in 2-3 days or sooner if symptoms do now improve or worsens.Patient/parent verbalized understanding and agreed with plan of care. - Education provided to patient includes: - Increase water intake. - Tylenol as directed - Wipe front to back for females. - Frequent voiding. - Avoid sexual activity until UTI resolves. - Follow up in the ER for worsening condition; nausea, vomiting, dizziness, passing out, fever, chills. 3. Suspected Covid-19 Virus Infection - COVID-19 (PCR MOLECULAR TESTING); Future - COVID-19 (PCR MOLECULAR TESTING) - Quarantine until your COVID results are back Criteria met - Covid testing - pending. This test can take 2-3 days to be resulted. While the test is pending...Please socially isolate your self - do not go out to stores or out in public. We will contact you once we have the results. If you are negative - continue with symptomatic treatment. (see below) Patients who have positive results will be contacted by the health department to enforce quarantine measures and for additional community contact tracing. The Infection Control Department will also undertake evaluation of exposures in our healthcare facility. If symptoms worsen - please call your Primary Care Doctor - do not go into the clinic. Call first. Educated on the following at home care: - Discussed likely viral diagnosis and treatment plan with pt. - pt advised on frequent effective handwashing - pt advised to increase fluid intake , stay hydrated and get plenty of rest. - advised to have the pt take OTC to treat symptoms. - Pt advised to administer Tylenol as per label recommendation as needed for pain or fever - Cover mouth when coughing, wear mask - Stay in your own bedroom and use a separate bathroom - Keep at least 6 feet from you and others - Avoid sharing personal household items, dishes, glasses, cups, towels -Clean high traffic/touch areas daily. These include but not limited to: doorknobs, refrigerator/cabinet handles, phones, keyboards, tablets, light switches. - AVS and Written/handout materials appropriate to problem and teaching provided. - advised to go to the nearest Emergency Department sooner for any new, worsening, persistent, or concerning symptoms - Patient verbalized understanding of all instructions - Follow-up with PCP as needed, if no improvement EDUCATION: Handouts given: Patient educated on plan of care for visit, swabbing technique,risks and benefits of test and lengthof time to receive results. Verbal consent obtained to perform test. CDC Fact Sheet for patients nCoV Diagnostic Panel dated 10/04/2019 provided. "What to do if you are sick with COVID-19" CDC information guide reviewed with the patient and handout given to patient Education given to self quarantine until results are back. Will notify patient with results. Patient states understanding and all questions answered. Plan of care, goals and medications discussed with patient. Patient voices understanding. Barriers to care: none Ability to manage care: good FOLLOW UP: Pt advised to call 911 or go to the nearest Emergency Department sooner for any worsening, persistent, or concerning symptoms ER precautions given Plan of care, desired health behaviors, goals, and medication discussed with patient. Education resources provided and reviewed with AVS. Patient/guardian/family verbalized understanding & agrees to plan of care. If applicable, the [employer] database was accessed to review any controlled substance prescription claims data. The [employer] prescription claims data in [employer] was reviewed to assess patient compliance with the medication treatment plan. Urgent Care precautions and follow up : 1. Return to clinic if your symptoms should worsen or fail to improve within 72 hours. 2. The care provided in the urgent care was for acute problems only. 3. You should follow up with your primary care provider within 72 hours. 4. Fill and take all your medications as prescribed. 5. Make sure you are staying adequately hydrated. MAY FOLLOW-UP WITH A PROVIDER OF YOUR CHOICE, SUCH : 1. A PHYSICIAN OF YOUR CHOICE OR, IF YOU WISH TO FOLLOW-UP WITHIN THE [facility], MAY TRY THESE OPTIONS (CLINIC APPOINTMENTS AVAILABLE ON [id number] BASIS): 1. SCHEDULE AN APPOINTMENT ONLINE AT [facility] 2. OR CALL THE [facility] ACCESS CENTER AT OR 3. OR CALL YOUR [facility] PHYSICIAN'S OFFICE DIRECTLY IF YOU ARE ALREADY AN ESTABLISHED [facility] PATIENT. After hours care nurse access center available by calling [phone] 24 hours 7 days per week. Edyta JERNIGAN [facility] documented in this encounter Plan of Treatment Name Type Priority Associated Diagnoses Order S chedule COVID-19 (PCR MOLECULAR LAB Routine Suspected Covid-1 9 Virus Expected: 02/13/2020, TESTING) Infection Expires: 2020 URINALYSIS MICROSCOPIC LAB Routine Dysuria Order ed: 02/13/2020 URINE CULTURE LAB Routine Dysuria Ordered: 02/12 Health Maintenance Due Date Last Done Comments HEPATITIS C (HCV) SCREEN 1955 DTaP,Tdap,and Td Vaccines (1 - 1967 Tdap) Depression Screening 1968 PAP SMEAR 1977 Breast Cancer Screening 1996 (MAMMOGRAM) COLONOSCOPY 2006 Zoster Recombinant Vaccine 2006 (SHINGRIX) (1 of 2) INFLUENZA VACCINE (#1) 2020 PNEUMOCOCCAL 0-64 YEARS COMBINED Aged Out No longer eligible based on SERIES patient's age to complete this topic documented as of this encounter Procedures Procedure Name Priority Date/Time Associated Diagnosis Comme nts POCT URINALYSIS Routine 02/13/2020 2:12 PM Dysuria Resul ts for this CDT procedure are i n the results section. documented in this encounter Results POCT URINALYSIS W SPECIFIC GRAVITY (02/13/2020 2:12 PM CDT) Pathologist Sig nature POCT U SP GRAV 1.005 1.005 - 1.025 mg/dl POCT PH U 5 5 - 8 mg/dl POCT U LEUK EST ++ Negative - Negative POCT U NIT neg Negative - Negative POCT U PROT 100++ Negative - Negative POCT U GLU normal Negative - Negative POCT U KETONE neg Negative - Negative POCT U UROBILI 1 0.2 - 1 mg/dl POCT U BILI neg Negative - Negative POCT U BLD 250 Negative - Negative POCT U COLOR toshia POCT U APPEAR cloudy Specimen Urine - URINE, CLEAN CATCH documented in this encounter Visit Diagnoses Diagnosis Pyelonephritis - Primary Pyelonephritis, unspecified Dysuria Suspected Covid-19 Virus Infection documented in this encounter Additional Health Concerns Infection Onset Date Last Indicated Resolved Time COVID-19 Rule Out 02/13/2020 02/13/2020 documented as of this encounter documented as of this encounter
[2020-02-13] MEDS ORDERED: FENTANYL CITR 100 MCG/2 ML ONE (19:41)
[2020-02-13] MEDS ORDERED: NA CHLORIDE 0.9% 1,000 ML ONE (19:41)
[2020-02-13 20:03] LABS: Absolute Lymphocytes (CBC) 0.6 K/uL (0.7-4.9); Basophils % 0.3 % (0-1.3); Hematocrit 35.7 % (36.0-45.0); RBC Red Blood Cell Count 3.87 M/uL (3.86-4.86)
[2020-02-13 20:04] LABS: Protime INR 1.14
[2020-02-13 20:25] LABS: Albumin 2.7 g/dL (3.4-5.0); Bilirubin Direct 0.3 mg/dL (0-0.2); Bilirubin Total 0.8 mg/dL (0.2-1.0); CKMB Creatine Kinase MB 1.7 ng/mL (0.3-3.6); Ferritin 207.7 ng/mL (8-388); Potassium 3.7 mmol/L (3.5-5.1); Protein, Total 7.4 g/dL (6.4-8.2); Troponin (Emerg Dept Use Only) 0.35 ng/mL (0.0-0.045)
[2020-02-13 20:45] LABS: Blood Morphology Comment NOT SEEN (NOT SEEN); Platelet Estimate ADEQ; Urine White Blood Cell Casts OK
[2020-02-13] MEDS ORDERED: ENOXAPARIN 80 MG/0.8 ML SQ ONE (20:54)
--- NOTE | 2020-02-13 21:29 | RAD REPORT ---
EXAM DESCRIPTION: RAD - Chest Single View - 02/13/2020 8:46 pm CLINICAL HISTORY: Cough;Dyspnea COMPARISON: Two view chest January 2015 TECHNIQUE: AP portable chest image was obtained 02/13/2020 8:46 pm . FINDINGS: Lung volumes are low compared to the prior imaging. No peripheral mass or consolidation. N o significant failure or volume overload finding identifiable. Heart size and vasculature within norm al limits. No measurable pleural effusion and no pneumothorax. No acute bony abnormality seen. No acu te aortic findings suspected. IMPRESSION: No acute cardiopulmonary process.
--- NOTE | 2020-02-13 21:56 | EDPHYS ---
Physician Documentation [facility] Name: Carol Valentino Age: 64 yrs Sex: Female : 1955 Arrival Date: 02/13/2020 Time: 18:57 Bed 6 Private MD: ED Physician Jett Giraldo HPI: 02/12 21:45 This 64 yrs old Female presents to ER via Wheelchair with complaints of snw Fever, Breathing Difficulty. 21:45 The patient reports fever, that was measured at 104 degrees Fahrenheit. Onset: The snw symptoms/episode began/occurred suddenly. Modifying factors: recurrent UTI. pt states she recently had ESBL urine infection. States urine has been concentrated and foul smelling and she feels she currently has a UTI. Associated signs and symptoms: Pertinent positives: this infection is different than pt norm as she is short of breath. Severity of symptoms: At their worst the symptoms were moderate severe. as noted. The patient has been recently seen by a physician: clinic today, UTI, placed on Cipro. Historical: - Allergies: 19:14 Bactrim; ca1 - PMHx: 19:14 Hypertension; Bradycardia; Stage III Renal Failure; ca1 - PSHx: 19:14 Nephrectomy; ; Gastric Bypass; ca1 - Immunization history:: Adult Immunizations up to date. - Social history:: Smoking status: Patient denies any tobacco usage or history of. ROS: 21:44 Eyes: Negative for injury, pain, redness, and discharge, ENT: Negative for injury, snw pain, and discharge, Neck: Negative for injury, pain, and swelling, Cardiovascular: Negative for chest pain, palpitations, and edema. 21:44 Abdomen/GI: Negative for abdominal pain, nausea, vomiting, diarrhea, and constipation, Back: Negative for injury, left flank pain, (left nephrectomy in the 70s) : Negative for injury, bleeding, discharge, and swelling, MS/Extremity: Negative for injury and deformity, Skin: Negative for injury, rash, and discoloration, Neuro: Negative for headache, weakness, numbness, tingling, and seizure. 21:44 Constitutional: Positive for body aches, fatigue, fever, malaise, poor PO intake. 21:44 Respiratory: Positive for cough, shortness of breath, at rest. Exam: 19:00 Head/Face: Normocephalic, atraumatic. Eyes: Pupils equal round and reactive to light, snw extra-ocular motions intact. Lids and lashes normal. Conjunctiva and sclera are non-icteric and not injected. Cornea within normal limits. Periorbital areas with no swelling, redness, or edema. ENT: Nares patent. No nasal discharge, no septal abnormalities noted. Tympanic membranes are normal and external auditory canals are clear. Oropharynx with no redness, swelling, or masses, exudates, or evidence of obstruction, uvula midline. Mucous membranes moist. Neck: Trachea midline, no thyromegaly or masses palpated, and no cervical lymphadenopathy. Supple, full range of motion without nuchal rigidity, or vertebral point tenderness. No Meningismus. Chest/axilla: Normal chest wall appearance and motion. Nontender with no deformity. No lesions are appreciated. Respiratory: Lungs have equal breath sounds bilaterally, clear to auscultation and percussion. No rales, rhonchi or wheezes noted. + increased work of breathing, no retractions or nasal flaring. Tachypnea, Denies chest pain Abdomen/GI: Soft, non-tender, with normal bowel sounds. No distension or tympany. No guarding or rebound. No evidence of tenderness throughout. Back: No spinal tenderness. No costovertebral tenderness. Full range of motion. Skin: Warm, mildly diaphoretic with normal turgor. Normal color with no rashes, no lesions, and no evidence of cellulitis. MS/ Extremity: Pulses equal, no cyanosis. Neurovascular intact. Full, normal range of motion. Neuro: Awake and alert, GCS 15, oriented to person, place, time, and situation. Cranial nerves II-XII grossly intact. Motor strength 5/5 in all extremities. Sensory grossly intact. Cerebellar exam normal. Normal gait. 19:00 Constitutional: The patient appears alert, awake, anxious, in obvious distress, restless, uncomfortable. 19:00 Cardiovascular: Rate: tachycardic, Rhythm: regular, Pulses: no pulse deficits are appreciated. 19:00 ECG was reviewed by the Attending Physician. w Vital Signs: 19:09 BP 116 / 63; Pulse 116; Resp 24; Temp 97.9(TE); Pulse Ox 95% on R/A; Weight 77.11 kg ca1 (R); Height 5 ft. 0 in. (152.40 cm) (R); 20:26 BP 98 / 57; Pulse 85; Resp 22; Pulse Ox 92% on R/A; ea 20:53 BP 91 / 53; Pulse 84; Resp 21; Pulse Ox 92% on R/A; mg2 21:06 BP 110 / 59; Pulse 83; Resp 19; Pulse Ox 93% on 2 lpm NC; ea 22:02 BP 93 / 54; Pulse 78; Resp 18; Pulse Ox 93% on 2 lpm NC; ea 23:20 BP 92 / 58; Pulse 75; Resp 19; Temp 98; Pulse Ox 93% on 2 lpm NC; ea 02/13 00:26 BP 100 / 56; Pulse 71; Resp 18; Pulse Ox 94% on 2 lpm NC; ea 01:04 BP 93 / 56; Pulse 80; Resp 18; Pulse Ox 95% on 2 lpm NC; ea 02/12 19:09 Body Mass Index 33.20 (77.11 kg, 152.40 cm) ca1 MDM: 02/12 19:07 Patient medically screened. brian 21:53 Data reviewed: vital signs, nurses notes. Data interpreted: Pulse oximetry: on room air snw is 92 %. Interpretation: hypoxia. Counseling: I had a detailed discussion with the patient and/or guardian regarding: the historical points, exam findings, and any diagnostic results supporting the discharge/admit diagnosis, lab results, radiology results, the need for further work-up and treatment in the hospital. Physician consultation: Lior Marcelino was called at 21:20, was contacted at 21:20, regarding admission. ED course: Dr. Marcelino agrees to see pt. 02/12 19:26 Order name: Amylase, Serum; Complete Time: 20:27 snw 02/12 19:26 Order name: Basic Metabolic Panel; Complete Time: 20:27 snw 02/12 19:26 Order name: Blood Culture Adult (2) snw 02/12 19:26 Order name: CBC with Diff; Complete Time: 20:51 snw 02/12 19:26 Order name: Ckmb; Complete Time: 20:27 snw 02/12 19:26 Order name: CPK; Complete Time: 20:27 snw 02/12 19:26 Order name: Lactate; Complete Time: 20:27 snw 02/12 19:26 Order name: LFT's; Complete Time: 20:27 snw 02/12 19:26 Order name: Lipase; Complete Time: 20:27 snw 02/12 19:26 Order name: Procalcitonin; Complete Time: 20:34 snw 02/12 19:26 Order name: Protime (+inr); Complete Time: 20:07 snw 02/12 19:26 Order name: Ptt, Activated; Complete Time: 20:07 w 02/12 19:26 Order name: Troponin (emerg Dept Use Only); Complete Time: 20:27 snw 02/12 19:26 Order name: Urine Microscopic Only; Complete Time: 23:30 snw 02/12 19:26 Order name: Chest Single View XRAY; Complete Time: 21:32 snw 02/12 19:26 Order name: Accucheck; Complete Time: 19:41 snw 02/12 19:26 Order name: Ferritin; Complete Time: 20:27 snw 02/12 19:26 Order name: COVID-19 [facility] 02/12 19:26 Order name: Urine Culture 02/12 20:06 Order name: CBC Smear Scan; Complete Time: 20:51 EDVT 02/12 21:23 Order name: DD; Complete Time: 21:56 w 02/12 22:48 Order name: Urine Dipstick--Ancillary (enter results) ar5 02/12 22:49 Order name: Urine Dipstick-Ancillary; Complete Time: 22:51 EDVT 02/12 23:04 Order name: Lactate Sepsis 2 HR Follow-up; Complete Time: 23:09 EDVT 02/13 00:51 Order name: CONS Physician Consult [facility] 02/12 19:26 Order name: Cardiac monitoring; Complete Time: 19:41 snw 02/12 19:26 Order name: EKG - Nurse/Tech; Complete Time: 19:41 snw 02/12 19:26 Order name: IV Saline Lock - Large Bore; Complete Time: 19:41 w 02/12 19:26 Order name: Labs collected and sent; Complete Time: 19:41 snw 02/12 19:26 Order name: O2 Per Protocol; Complete Time: 19:41 snw 02/12 19:26 Order name: O2 Sat Monitoring; Complete Time: 19:42 snw 02/12 19:26 Order name: Urine Dipstick-Ancillary (obtain specimen); Complete Time: 23:22 snw 02/12 19:26 Order name: Angelo; Complete Time: 23:22 snw EC:50 Rate is 95 beats/min. Rhythm is regular. QRS [place] is Normal. [place] interval is normal. QRS snw interval is normal. QT interval is normal. T waves are Inverted. T waves are Flattened. Clinical impression: NSR w/ Non-specific ST/T Changes. Administered Medications: 19:30 Drug: NS 0.9% 1000 ml Route: IV; Rate: 75 ml/hr; Site: right antecubital; ea 23:21 Follow up: Response: No adverse reaction; IV Status: Completed infusion; IV Intake: ea 300ml 19:30 Drug: fentaNYL (PF) 25 mcg Route: IVP; Site: right antecubital; ea 20:43 Follow up: Response: No adverse reaction; RASS: Alert and Calm (0) mg2 20:38 Drug: Meropenem 1 grams Route: IV; Rate: calculated rate; Site: right antecubital; ea 21:36 Follow up: Response: No adverse reaction; IV Status: Completed infusion ea 20:58 Drug: NS 0.9% 500 ml Route: IV; Rate: bolus; Site: right antecubital; ea 21:36 Follow up: Response: No adverse reaction; IV Status: Completed infusion; IV Intake: ea 500ml 20:58 Drug: Lovenox 70 mg Route: Sub-Q; Site: right lower abdomen; ea 21:36 Follow up: Response: No adverse reaction ea Disposition: 02/13 05:29 Co-signature as Attending Physician, Efren Watts MD I agree with the assessment and tw4 plan of care. Disposition: 02/13/20 21:56 Hospitalization ordered by Lior Marcelino for Inpatient Admission. Preliminary diagnosis are Sepsis due to unspecified staphylococcus, Hypoxemia - concern for PE. - Bed requested for Telemetry/MedSurg (Inpatient). - Status is Inpatient Admission. ea - Condition is Stable. - Problem is new. - Symptoms have worsened. Signatures: Dispatcher [employer] EDJett Patel MD MD cha Waters, Shelly, COMPUTER PERIPHERAL EQUIPMENT OPERATOR-C COMPUTER PERIPHERAL EQUIPMENT OPERATOR-Csnw Breanna Eduardo RN RN Graciela Del Rosario RN Efren Foley ea, MD MD tw4 Clari Guillen RN RN ca1 Irving Vann RN mg2 Corrections: (The following items were deleted from the chart) 00:57 02/12 21:56 Hospitalization Ordered by Lior Marcelino for Inpatient Admission. Preliminary diagnosis is Sepsis due to unspecified staphylococcus; Hypoxemia - concern for PE. Bed requested for Telemetry/MedSurg (Inpatient). Status is Inpatient Admission. Condition is Stable. Problem is new. Symptoms have worsened. snw 02/13 01:20 00:57 02/13/2020 21:56 Hospitalization Ordered by Lior Marcelino for Inpatient ea Admission. Preliminary diagnosis is Sepsis due to unspecified staphylococcus; Hypoxemia - concern for PE. Bed requested for Telemetry/MedSurg (Inpatient). Status is Inpatient Admission. Condition is Stable. Problem is new. Symptoms have worsened. cg
--- NOTE | 2020-02-13 21:56 | ER ---
Nurse's Notes [facility] Name: Carol Valentino Age: 64 yrs Sex: Female : 1955 Arrival Date: 02/13/2020 Time: 18:57 Bed 6 Private MD: Diagnosis: Sepsis due to unspecified staphylococcus;Hypoxemia-concern for PE Presentation: 02/12 19:09 Chief complaint: Patient states: Fever x 2 days, Cough and SOB today. SPO2 at home at ca1 82%. Fever today, Htemp 104F, took Tylenol at 1600. Tested for Covid-19 today, no results yet. Coronavirus screen: Patient reports a cough. Patient reports shortness of breath or difficulty breathing. Patient reports a measured and/or subjective temperature greater than 100.4F. Patient denies travel on a cruise ship or to a country the [facility] currently lists as an affected area. Patient denies contact with known and/or suspected case of COVID-19. Patient instructed to continue to wear a mask when interacting with others. Patient moved to private room, placed in contact and droplet isolation with eye protection until further assessment. Prior COVID test collected on: 02/13/2020. Ebola Screen: Patient negative for fever greater than or equal to 101.5 degrees Fahrenheit, and additional compatible Ebola Virus Disease symptoms Patient denies exposure to infectious person. Patient denies travel to an Ebola-affected area in the 21 days before illness onset. No symptoms or risks identified at this time. Initial Sepsis Screen: Does the patient meet any 2 criteria? RR > 20 per min. HR > 90 bpm. Yes Does the patient have a suspected source of infection? Yes: Productive cough/pneumonia If YES to both, name of provider notified: Leyla BOYD. Risk Assessment: Do you want to hurt yourself or someone else? Patient reports no desire to harm self or others. Onset of symptoms was February 13, 2020. 19:09 Method Of Arrival: Wheelchair ca1 19:09 Acuity: ATIYA 2 ca1 Historical: - Allergies: 19:14 Bactrim; ca1 - PMHx: 19:14 Hypertension; Bradycardia; Stage III Renal Failure; ca1 - PSHx: 19:14 Nephrectomy; ; Gastric Bypass; ca1 - Immunization history:: Adult Immunizations up to date. - Social history:: Smoking status: Patient denies any tobacco usage or history of. Screenin:24 Abuse screen: Denies threats or abuse. Nutritional screening: No deficits noted. ea Tuberculosis screening: No symptoms or risk factors identified. Fall Risk None identified. Assessment: 19:23 General: Appears uncomfortable, Behavior is appropriate for age. Pain: Complains of ea pain in generalized body aches. Neuro: Level of Consciousness is awake, alert, obeys commands, Oriented to person, place, time, situation. Cardiovascular: Patient's skin is warm and dry. Respiratory: Airway is patent Respiratory effort is even, unlabored, Respiratory pattern is regular, tachypnea. Derm: Skin is clammy, Skin is normal, Skin temperature is warm. 20:55 Reassessment: Patient appears in no apparent distress at this time. Patient and/or mg2 family updated on plan of care and expected duration. Pain level reassessed. Patient is alert, oriented x 3, equal unlabored respirations, skin warm/dry/pink. 21:35 Cardiovascular: Rhythm is sinus rhythm. ea 21:35 Reassessment: Patient and/or family updated on plan of care and expected duration. Pain ea level reassessed. Patient is alert, oriented x 3, equal unlabored respirations, skin warm/dry/pink. 22:50 Reassessment: Patient and/or family updated on plan of care and expected duration. Pain ea level reassessed. Patient is alert, oriented x 3, equal unlabored respirations, skin warm/dry/pink. 23:20 Reassessment: Patient and/or family updated on plan of care and expected duration. Pain ea level reassessed. Patient is alert, oriented x 3, equal unlabored respirations, skin warm/dry/pink. Awaiting on room assignment. 02/13 00:20 Reassessment: Patient and/or family updated on plan of care and expected duration. Pain ea level reassessed. Patient is alert, oriented x 3, equal unlabored respirations, skin warm/dry/pink. Awaiting on admitting orders. 01:04 Reassessment: Patient and/or family updated on plan of care and expected duration. Pain ea level reassessed. Patient is alert, oriented x 3, equal unlabored respirations, skin warm/dry/pink. 01:19 Reassessment: Patient and/or family updated on plan of care and expected duration. Pain ea level reassessed. Patient is alert, oriented x 3, equal unlabored respirations, skin warm/dry/pink. Pt admitted to fourth floor, report given to Bulmaro MARSH. Pt left ED via stretcher per office technology instructor. Pt tolerating well. Vital Signs: 02/12 19:09 BP 116 / 63; Pulse 116; Resp 24; Temp 97.9(TE); Pulse Ox 95% on R/A; Weight 77.11 kg ca1 (R); Height 5 ft. 0 in. (152.40 cm) (R); 20:26 BP 98 / 57; Pulse 85; Resp 22; Pulse Ox 92% on R/A; ea 20:53 BP 91 / 53; Pulse 84; Resp 21; Pulse Ox 92% on R/A; mg2 21:06 BP 110 / 59; Pulse 83; Resp 19; Pulse Ox 93% on 2 lpm NC; ea 22:02 BP 93 / 54; Pulse 78; Resp 18; Pulse Ox 93% on 2 lpm NC; ea 23:20 BP 92 / 58; Pulse 75; Resp 19; Temp 98; Pulse Ox 93% on 2 lpm NC; ea 02/13 00:26 BP 100 / 56; Pulse 71; Resp 18; Pulse Ox 94% on 2 lpm NC; ea 01:04 BP 93 / 56; Pulse 80; Resp 18; Pulse Ox 95% on 2 lpm NC; ea 02/12 19:09 Body Mass Index 33.20 (77.11 kg, 152.40 cm) ca1 ED Course: 02/12 18:57 Patient arrived in ED. ag5 18:59 Le[facility] Culp [facility]-C [facility] snw 18:59 Efren Watts MD is Attending Physician. snw 19:02 Irving Vann, MAXIMO is Primary Nurse. mg2 19:07 Attending Physician role handed off by Efren Watts MD brian 19:07 Jett Giraldo MD is Attending Physician. brian 19:13 Triage completed. ca1 19:14 Arm band placed on right wrist. ca1 19:24 Patient has correct armband on for positive identification. Bed in low position. Call ea light in reach. Side rails up X2. 19:25 Inserted saline lock: 20 gauge in right forearm, using aseptic technique. Blood ds4 collected. 19:40 First set of blood cultures drawn by me Second set of blood cultures drawn by me. ds4 19:48 Troponin (emerg Dept Use Only) Sent. ds4 19:48 Ptt, Activated Sent. ds4 19:48 Protime (+inr) Sent. ds4 19:55 Graciela Andersen, RN is Primary Nurse. ea 20:47 Chest Single View XRAY In Process Unspecified. EDMS 21:55 Lior Marcelino is Hospitalizing Provider. snw 21:58 No provider procedures requiring assistance completed. Patient admitted, IV remains in ea place. 22:35 COVID-19 Sent. ds4 22:47 Stephens cath inserted, using sterile technique, 16 Fr., returned cloudy urine. Patient mg2 tolerated 200 ml Urine output. Administered Medications: 19:30 Drug: NS 0.9% 1000 ml Route: IV; Rate: 75 ml/hr; Site: right antecubital; ea 23:21 Follow up: Response: No adverse reaction; IV Status: Completed infusion; IV Intake: ea 300ml 19:30 Drug: fentaNYL (PF) 25 mcg Route: IVP; Site: right antecubital; ea 20:43 Follow up: Response: No adverse reaction; RASS: Alert and Calm (0) mg2 20:38 Drug: Meropenem 1 grams Route: IV; Rate: calculated rate; Site: right antecubital; ea 21:36 Follow up: Response: No adverse reaction; IV Status: Completed infusion ea 20:58 Drug: NS 0.9% 500 ml Route: IV; Rate: bolus; Site: right antecubital; ea 21:36 Follow up: Response: No adverse reaction; IV Status: Completed infusion; IV Intake: ea 500ml 20:58 Drug: Lovenox 70 mg Route: Sub-Q; Site: right lower abdomen; ea 21:36 Follow up: Response: No adverse reaction ea Intake: 21:36 IV: 500ml; Total: 500ml. ea 23:21 IV: 300ml; Total: 800ml. ea Outcome: 21:56 Decision to Hospitalize by Provider. snw 21:58 Instructed on the need for admit, Demonstrated understanding of instructions. ea 02/13 01:07 Admitted to Tele accompanied by tech, via stretcher, room 403, with oxygen, with chart, mg2 Report called to MONE Chamberlain Condition: stable 01:20 Patient left the ED. ea Signatures: Dispatcher [employer] EDMS Jett Giraldo MD MD cha Waters, Shelly, SUPERVISOR PRE WAVE-C SUPERVISOR PRE WAVE-Csnw [place] ds4 Graciela Andersen RN RN ea Gardose, Michele, RN RN mg2 Clari Guillen RN RN ca1 Eren Quiñonez ag5
[2020-02-13 22:50] LABS: Urine Blood 2+ (NEG); Urine Glucose NEGATIVE (NEG); Urine Protein 3+ (NEG); Urine Specific Gravity 1.015 (1.005-1.030)
[2020-02-13 23:22] LABS: Urine Amorphous Sediment 2+ /HPF (NONE SEEN); Urine Bacteria >50 /HPF (<20); Urine Coarse Granular Casts FEW /LPF (NONE SEEN); Urine Mucus 2+ /HPF (NONE SEEN); Urine RBC 20-50 /HPF (NONE SEEN)
[2020-02-13 23:23] LABS: Urine Culture Reflex Order NOT NEEDED
--- NOTE | 2020-02-14 00:41 | P.HP ---
Certification for Inpatient Patient admitted to: Inpatient With expected LOS: >2 Midnights Practitioner: I am a practitioner with admitting privileges, knowledge of patient current condition, hospital course, and medical plan of care. Services: Services provided to patient in accordance with Admission requirements found in Title 42 Section 412.3 of the Code of Federal Regulations Patient History Date of Service: 02/14/20 Reason for admission: Fever and shortness of breath History of Present Illness: 64-year-old woman with a history of chronic kidney disease stage 2, status post nephrectomy and hypertension presented to the emergency department with a complaint fever, cough and shortness of breath. She was in urgent care yesterday in the afternoon where patient was tested for COVID, the result is pending. Her urinalysis at the urgent care suggested the presence of UTI. Patient was discharged with antibiotics. She felt worse when she got home. She reported fever up to 104. There is also reports her oxygen saturation was 82% on room air. Patient presented to the emergency department to evaluate. Her UA in the ED suggest the presence of UTI. Her D-dimer is elevated. She has no leukocytosis. Chest x-ray showed no infiltrates. She was tachypneic in the ED. CTA thorax to rule out PU could not be done due to her elevated serum creatinine. Patient is admitted for further management. Allergies bacitracin Allergy (Unverified 01/04/15 13:36) Unknown sulfacetamide [From Sulfamide] Allergy (Verified 02/14/20 02:24) Hives Scopolamine HBr Allergy (Uncoded 01/04/15 13:36) Unknown Home Medications: Amlodipine [Norvasc*] 7.5 mg PO DAILY 02/14/20 Aspirin Chewable [Aspirin Chewable*] 81 mg PO DAILY 02/14/20 Atorvastatin Calcium [Lipitor] 80 mg PO DAILY 02/14/20 Cholecalciferol (Vitamin D3) [Vitamin D 1000 Iu Tab*] 2,000 mg PO DAILY 02/14/20 Cyanocobalamin (Vitamin B-12) [Vitamin B-12] 1,000 mg PO DAILY 02/14/20 Cyclosporine [Restasis] 1 drop LEFT EYE BID 02/14/20 Ezetimibe [Zetia*] 10 mg PO DAILY 02/14/20 Gabapentin 300 mg PO BEDTIME 02/14/20 Multivitamin [Multiple Vitamins] 1 tab PO DAILY 02/14/20 [place]-3 Fatty Acids [[place]-3] 4,000 mg PO DAILY 02/14/20 Omeprazole Magnesium [Prilosec Otc] 20 mg PO DAILY 02/14/20 hydroCHLOROthiazide [Hydrochlorothiazide] 12.5 mg PO DAILY 02/14/20 - Past Medical/Surgical History -: Hypertension -: Chronic kidney disease stage 3 -: Nephrectomy -: Caesarean section - Family History Family History: Reviewed- Non-Contributory - Family History Father -: Stroke Mother -: Cancer Notes: non small lung CA Brother -: Heart disease Notes: drug abuse - Social History Smoking Status: Never smoker Alcohol use: No CD- Drugs: No Place of Residence: Home Review of Systems Other: Patient denied any nausea or vomiting or diarrhea. Except as documented, all other systems reviewed and negative. Physical Examination - Physical Exam General: Alert, In no apparent distress, Oriented x3 HEENT: PERRLA, Mucous membr. moist/pink, Sclerae nonicteric Neck: Supple, JVD not distended Respiratory: Clear to auscultation bilaterally, Normal air movement Cardiovascular: No edema, Regular rate/rhythm, Normal S1 S2 Capillary refill: <2 Seconds Gastrointestinal: Normal bowel sounds, Soft and benign, No tenderness Musculoskeletal: No swelling, No erythema Integumentary: No rashes Neurological: Normal strength at 5/5 x4 extr, Cranial nerves 3-12 intact - Studies Laboratory Data (last 24 hrs) 02/13/20 19:25: PT 13.4 H, INR 1.14, APTT 29.7 02/13/20 19:25: WBC 5.7, Hgb 12.3, Hct 35.7 L, Plt Count 204 02/13/20 19:25: Sodium 138, Potassium 3.7, BUN 46 H, Creatinine 2.52 H, Glucose 138 H, Total Bilirubin 0.8, AST 180 H, ALT 92 H, Alkaline Phosphatase 174 H, Amylase 33, Lipase 110 Assessment and Plan - Problems (Diagnosis) (1) UTI (urinary tract infection) Current Visit: Yes Status: Acute (2) Acute renal failure superimposed on stage 3 chronic kidney disease Current Visit: Yes Status: Acute (3) Acute respiratory failure with hypoxia Current Visit: Yes Status: Acute (4) Elevated d-dimer Current Visit: Yes Status: Acute (5) Elevated troponin Current Visit: Yes Status: Acute (6) NSTEMI (non-ST elevated myocardial infarction) Current Visit: Yes Status: Acute - Plan Admit to the medical floor. There is a report of penicillin allergy but patient did not react to recent amoxicillin prescribed for UTI. Start Rocephin for UTI Follow urine culture and blood cultures Given elevated D-dimer, elevated troponin and hypoxia, will need to treat for PE until it is ruled out with V/Q scan. Heparin drip for possible PE and NSTEMI. Trend troponin. Follow COVID 19 test result. Supplemental oxygen. Check venous Doppler of lower extremities. Nephrology consult IV hydration with normal saline Monitor electrolytes and renal function. Monitor CBC - Advance Directives Does patient have a Living Will: No Does patient have a Durable POA for Healthcare: No
[2020-02-14] MEDS ORDERED: NA CHLORIDE 0.9% 1,000 ML IV SCH ×2 (01:19→13:57)
[2020-02-14] MEDS ORDERED: ONDANSETRON 4 MG/2 ML VIAL IV PRN (01:19)
[2020-02-14] MEDS ORDERED: HEPARIN/D5W 25,000 UNIT/500 ML BAG IV PRN (01:19)
[2020-02-14] MEDS ORDERED: ACETAMINOPHEN 500 MG TAB PO PRN (01:19)
[2020-02-14 02:07] LABS: Absolute Lymphocytes (CBC) 1.1 K/uL (0.7-4.9); Basophils % 0.1 % (0-1.3); Hematocrit 31.4 % (36.0-45.0); Lymphocytes % 5.6 % (15.3-44.8); RBC Red Blood Cell Count 3.36 M/uL (3.86-4.86)
[2020-02-14 02:08] LABS: Protime INR 1.36
[2020-02-14 02:42] VITALS: BMI 36.1
[2020-02-14 02:43] LABS: Platelet Estimate ADEQ
[2020-02-14 02:44] LABS: Blood Morphology Comment NOT SEEN (NOT SEEN)
[2020-02-14 02:46] LABS: Thyroid Stimulating Hormone 0.524 uIU/mL (0.360-3.740)
[2020-02-14 02:51] LABS: Troponin I 1.61 ng/mL (0.0-0.045)
[2020-02-14] MEDS ORDERED: HEPARIN 10,000 UNIT/10 ML VIAL IV ONE (03:02)
[2020-02-14] MEDS ORDERED: HEPARIN 5000 UNIT/ML 1 ML VIAL ONE (03:32)
[2020-02-14] MEDS ORDERED: Magnesium Sulfate 2gm IVPB 2 G/50 ML BAG IV ONE (04:00)
[2020-02-14 06:08] LABS: Potassium 3.5 mmol/L (3.5-5.1)
[2020-02-14] MEDS ORDERED: POTASSIUM CL SA 10 MEQ TAB PO ONE (07:48)
--- NOTE | 2020-02-14 08:44 | P.PN ---
Date of Service: 02/14/20 Patient seen and examined. Troponin trended down. Patient denies any chest pain. She is started on heparin drip for possible PE and NSTEMI. V/Q scan is not available till saturday. No cardiology service available today. UA suggest the presence of UTI. Urine output has improved. Plan: Obtained EKG. 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 Continue current treatment. Follow urine culture.
[2020-02-14] MEDS ORDERED: CEFTRIAXONE 1 GM/NS 50 ML 1 GM/50 ML BAG IV SCH (09:00)
[2020-02-14] MEDS ORDERED: CEFTRIAXONE/SWI 1gm 1 GM/10 ML SYR IVP SCH (11:00)
[2020-02-14] MEDS ORDERED: Meropenem 500 MG VIAL IV SCH (11:33)
--- NOTE | 2020-02-14 14:03 | P.CNS ---
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 in ER pt was febrile , and hypotensive COVID rolled out , Pt had MICHAEL in December cr 1.7, her change control manager stopped lisn iopril , repeated labs last month Cr 1.38 pt denied NSAID or recent contrast exposure, deneid chest pain, nausea, vomiting or diarrhea Physical exam general: AAOX3, NAD , obese Neck; Supple, No elevated JVD hear: RRR, normal S1,2 no murmur or rub Chest: CTAB, no rlaes or wheezes Abdomen: Soft , Nt Extremities No edema or ulcer A/P MICHAEL possibly due to septic GN +/- dehydration cont IVF renal dose meds will order serology and US hold HCTZ UTI cont merrem Hx of recurrent UTI NSTEMI trend trop cardiology evaluation on HEparin drip Septic shock cont abx f.u cultures results total time spent 50 min Allergies bacitracin Allergy (Unverified 01/04/15 13:36) Unknown sulfacetamide [From Sulfamide] Allergy (Verified 02/14/20 02:24) Hives Scopolamine HBr Allergy (Uncoded 01/04/15 13:36) Unknown Home Medications: Amlodipine [Norvasc*] 7.5 mg PO DAILY 02/14/20 Aspirin Chewable [Aspirin Chewable*] 81 mg PO DAILY 02/14/20 Atorvastatin Calcium [Lipitor] 80 mg PO DAILY 02/14/20 Cholecalciferol (Vitamin D3) [Vitamin D 1000 Iu Tab*] 2,000 mg PO DAILY 02/14/20 Cyanocobalamin (Vitamin B-12) [Vitamin B-12] 1,000 mg PO DAILY 02/14/20 Cyclosporine [Restasis] 1 drop LEFT EYE BID 02/14/20 Ezetimibe [Zetia*] 10 mg PO DAILY 02/14/20 Gabapentin 300 mg PO BEDTIME 02/14/20 Multivitamin [Multiple Vitamins] 1 tab PO DAILY 02/14/20 [place]-3 Fatty Acids [[place]-3] 4,000 mg PO DAILY 02/14/20 Omeprazole Magnesium [Prilosec Otc] 20 mg PO DAILY 02/14/20 hydroCHLOROthiazide [Hydrochlorothiazide] 12.5 mg PO DAILY 02/14/20 - Past Medical/Surgical History Diabetic: No -: Hypertension -: Chronic kidney disease stage 3 -: chronic UTI -: carrotid stenosis -: Nephrectomy -: Caesarean section -: gastric bypas -: Tummy tuck/hernia repair 2009 - Family History Father Medical History: Stroke Mother Medical History: Cancer Notes: non small lung CA Brother Medical History: Heart disease Notes: drug abuse - Social History Alcohol use: No CD- Drugs: No Caffeine use: Yes Place of Residence: Home Physical Examination Temp Pulse Resp BP Pulse Ox 97.7 F 60 18 102/57 L 97 02/14/20 08:00 02/14/20 08:00 02/14/20 08:00 02/14/20 08:00 02/14/20 08:00 Laboratory Data (last 24 hrs) 02/13/20 19:25: PT 13.4 H, INR 1.14, APTT 29.7 02/13/20 19:25: WBC 5.7, Hgb 12.3, Hct 35.7 L, Plt Count 204 02/13/20 19:25: Sodium 138, Potassium 3.7, BUN 46 H, Creatinine 2.52 H, Glucose 138 H, Total Bilirubin 0.8, AST 180 H, ALT 92 H, Alkaline Phosphatase 174 H, Amylase 33, Lipase 110
[2020-02-14] MEDS ORDERED: ENOXAPARIN 80 MG/0.8 ML SQ SCH (17:00)
[2020-02-14] MEDS ORDERED: Meropenem 500 MG in NA CHLORIDE 0.9% 100 ML IV SCH (17:00)
--- NOTE | 2020-02-14 18:06 | RAD REPORT ---
EXAM DESCRIPTION: USExtrem Venous W Compress Bil02/14/2020 5:43 pm CLINICAL HISTORY: Leg pain COMPARISON: none FINDINGS: The common femoral, superficial femoral, popliteal and posterior tibial veins bilaterally are compressible and demonstrate augmentation. Doppler demonstrates good flow. 3 centimeter right James's cyst IMPRESSION: No evidence of deep venous thrombosis involving either lower extremity.
--- NOTE | 2020-02-14 18:09 | RAD REPORT ---
EXAM DESCRIPTION: US - Renal Ultrasound-Limited - 02/14/2020 5:43 pm CLINICAL HISTORY: Acute renal insufficiency COMPARISON: 2014 FINDINGS: A left nephrectomy Right kidney measures 12 centimeters with a normal echotexture No hydronephrosis The bladder is decompressed and poorly evaluated IMPRESSION: Unremarkable right renal ultrasound
--- NOTE | 2020-02-14 18:17 | P.PN ---
Subjective Date of Service: 02/14/20 Chief Complaint: discoloration of toes patient was admitted with possible sepsis and was anti coagulated with heparin developed discoloration of her right toe the some paresthesia Review of Systems Unremarkable Physical Examination - Vital Signs Temperature: 98 F Blood Pressure: 124/63 Pulse: 63 Respirations: 19 Pulse Ox (%): 97 - Physical Exam General: Alert, Oriented x3 Neck: Supple Cardiovascular: No edema, Normal S1 S2 Musculoskeletal: No clubbing, Other ( pulses are palpable she has slight discoloration on the 2nd and the 3rd toe there is no edema of lower extremity) - Studies Laboratory Data (last 24 hrs) 02/13/20 19:25: PT 13.4 H, INR 1.14, APTT 29.7 02/13/20 19:25: WBC 5.7, Hgb 12.3, Hct 35.7 L, Plt Count 204 02/13/20 19:25: Sodium 138, Potassium 3.7, BUN 46 H, Creatinine 2.52 H, Glucose 138 H, Total Bilirubin 0.8, AST 180 H, ALT 92 H, Alkaline Phosphatase 174 H, A mylase 33, Lipase 110 Assessment & Plan - Problems (Diagnosis) (1) Discoloration of skin of toe Current Visit: Yes Status: Acute Plan: patient developed some discoloration of the 2nd and 3rd toes doubt that this is DVT patient is on heparin for elevated troponin I suggest changing him to Lovenox possibility of cholesterol emboli symptoms suggested of sepsis abnormal LFTs elevated pro calcitonin adrenal insufficiency elevated white count elevated D-dimer is nonspecific apart from thromboembolic disease seen can be elevated in the renal or hepatic insufficiency patient has no fever is not hypoxic hemodynamically stable no evidence of DVT low pre clinical probability
[2020-02-14 20:13] VITALS: O2SAT 97
[2020-02-14] MEDS ORDERED: ENOXAPARIN 100 MG/ML SYR SQ SCH (21:00)
[2020-02-14 21:59] VITALS: BP 119/59; TEMP 98.2
--- NOTE | 2020-02-15 05:58 | EKG ---
Test Date: 2020-02-14 Test Time: 09:06:42 Management Rep: NAVI Llanes MEASUREMENT RESULTS: Intervals: Rate: 66 NC: 148 QRSD: 78 QT: 450 QTc: 471 [place]: P: 50 NC: 148 QRS: 21 T: 66 INTERPRETIVE STATEMENTS: Sinus rhythm with premature supraventricular complexes Cannot rule out Anterior infarct, age undetermined Abnormal ECG Compared to ECG 02/13/2020 19:45:51 Atrial premature complex(es) now present Myocardial infarct finding still present Electronically Signed On 02-15-20 05:57:03 CDT by Bro Conway
[2020-02-15] MEDS ORDERED: ASPIRIN 81 MG CHEWABLE TABLET PO SCH (09:00)
--- NOTE | 2020-02-15 09:16 | P.DS ---
Admission Date: 02/14/20 Discharge Date: 02/15/20 Disposition: TRANSFER TO [facility] Discharge Condition: FAIR Reason for Admission: Fever and shortness of breath. Consultations: Nephrology. - Problems (1) UTI (urinary tract infection) Status: Acute (2) Acute renal failure superimposed on stage 3 chronic kidney disease Status: Acute (3) Acute respiratory failure with hypoxia Status: Acute (4) Elevated d-dimer Status: Acute (5) Elevated troponin Status: Acute (6) NSTEMI (non-ST elevated myocardial infarction) Status: Acute Brief History of Present Illness: 64-year-old woman with a history of chronic kidney disease stage 2, status post nephrectomy and hypertension presented to the emergency department with a complaint fever, cough and shortness of breath. She was in urgent care yesterday in the afternoon where patient was tested for COVID, the result is pending. Her urinalysis at the urgent care suggested the presence of UTI. Lucy juan was discharged with antibiotics. She felt worse when she got home. She reported fever up to 104. There is also reports her oxygen saturation was 82% on room air. Patient presented to the emergency department to evaluate. Her UA in the ED suggest the presence of UTI. Her D-dimer is elevated. She has no leukocytosis. Chest x-ray showed no infiltrates. She was tachypneic in the ED. CTA thorax to rule out PU could not be done due to her elevated serum creatinine. Patient is admitted for further management. Hospital Course: Patient was admitted to telemetry and started on heparin drip for possible pulmonary embolism. Her troponin trended up. Venous Doppler of lower extremity was done which did not show any acute DVT. Patient developed leukocytosis. She was treated with IV antibiotics for UTI. Patient with a diagnosis of NSTEMI and possible pulmonary embolism. No cardiology available to evaluate patient. Cannot do CTA thorax due to impaired renal function. V/Q scan also not available. Patient initially requested for transferred to [facility] in the ED but this was declined. Transferred to [facility] was initiated when her troponin trended down and there was no cardiology service to evaluate patient. She is accepted for transfer to [facility] for further management. Vital signs stable for transfer. Vital Signs/Physical Exam: Temp Pulse Resp BP Pulse Ox 98.2 F 76 16 119/59 L 96 02/14/20 20:00 02/14/20 20:00 02/14/20 20:00 02/14/20 20:00 02/14/20 20:00 Laboratory Data at Discharge: WBC Cancelled 02/15/20 05:00 Hgb Cancelled 02/15/20 05:00 Hct Cancelled 02/15/20 05:00 Plt Count Cancelled 02/15/20 05:00 PT 15.9 SECONDS (9.5-12.5) H 02/14/20 01:47 INR 1.36 02/14/20 01:47 APTT 108.6 SECONDS (24.3-36.9) H* 02/14/20 15:56 Sodium Cancelled 02/15/20 05:00 Potassium Cancelled 02/15/20 05:00 BUN Cancelled 02/15/20 05:00 Creatinine Cancelled 02/15/20 05:00 Glucose Cancelled 02/15/20 05:00 Uric Acid Cancelled 02/15/20 07:00 Phosphorus Cancelled 02/15/20 07:00 Magnesium Cancelled 02/15/20 05:00 Total Bilirubin 0.8 mg/dL (0.2-1.0) 02/13/20 19:25 AST 180 U/L (15-37) H 02/13/20 19:25 ALT 92 U/L (12-78) H 02/13/20 19:25 Alkaline Phosphatase 174 U/L (45-117) H 02/13/20 19:25 Troponin I Cancelled 02/14/20 21:19 Amylase 33 U/L (25-115) 02/13/20 19:25 Lipase 110 U/L (73-393) 02/13/20 19:25 Home Medications: Amlodipine [Norvasc*] 7.5 mg PO DAILY 02/14/20 Aspirin Chewable [Aspirin Chewable*] 81 mg PO DAILY 02/14/20 Atorvastatin Calcium [Lipitor] 80 mg PO DAILY 02/14/20 Cholecalciferol (Vitamin D3) [Vitamin D 1000 Iu Tab*] 2,000 mg PO DAILY 02/14/20 Cyanocobalamin (Vitamin B-12) [Vitamin B-12] 1,000 mg PO DAILY 02/14/20 Cyclosporine [Restasis] 1 drop LEFT EYE BID 02/14/20 Ezetimibe [Zetia*] 10 mg PO DAILY 02/14/20 Gabapentin 300 mg PO BEDTIME 02/14/20 Multivitamin [Multiple Vitamins] 1 tab PO DAILY 02/14/20 [place]-3 Fatty Acids [[place]-3] 4,000 mg PO DAILY 02/14/20 Omeprazole Magnesium [Prilosec Otc] 20 mg PO DAILY 02/14/20 hydroCHLOROthiazide [Hydrochlorothiazide] 12.5 mg PO DAILY 02/14/20
== END 2020-02-15 00:12 | disposition short-term general hospital (02) | DRG 871 ==
LOC: ER 18:55 → ERHOLD 02-14 00:53 → 4TH 02-14 01:08 → 2ND 02-14 06:01
PROVIDERS: ADMIT Internal Medicine; ATTEND Internal Medicine
PROC: 8E0ZXY6 Isolation (ICD-10-PCS; principal; 2020-02-14)
DX: A41.9 Sepsis, unspecified organism (principal); J96.01 Acute respiratory failure with hypoxia; I21.4 Non-ST elevation (NSTEMI) myocardial infarction; R65.21 Severe sepsis with septic shock; I26.99 Other pulmonary embolism without acute cor pulmonale; N39.0 Urinary tract infection, site not specified; N17.9 Acute kidney failure, unspecified; I12.9 Hypertensive chronic kidney disease with stage 1 through stage 4 chronic kidney disease, or unspecified chronic kidney disease; N18.3 Chronic kidney disease, stage 3 (moderate); Z20.828 Contact with and (suspected) exposure to other viral communicable diseases; R50.9 Fever, unspecified; R05 Cough; Z88.1 Allergy status to other antibiotic agents; Z88.8 Allergy status to other drugs, medicaments and biological substances; Z79.82 Long term (current) use of aspirin; Z79.899 Other long term (current) drug therapy; R79.89 Other specified abnormal findings of blood chemistry; Z98.84 Bariatric surgery status; I25.10 Atherosclerotic heart disease of native coronary artery without angina pectoris; E66.9 Obesity, unspecified; Z68.36 Body mass index [BMI] 36.0-36.9, adult; E86.0 Dehydration
CPT/HCPCS: 36415; 51702; 71045; 76775; 80048; 80076; 81003; 81015; 82150; 82274; 82550; 82553; 82728; 83605; 83690; 83735; 84145; 84443; 84484; 85025; 85049; 85379; 85610; 85730; 87040; 87086; 87088; 93005; 93970; 94760; 96361; 96365; 96372; 96375; 99285; J0696; J1644; J3010; J3475; J7030; U0002